=== PATIENT | male | born 1930 | race Caucasian/White ===

== ENCOUNTER → 2016-06-25 | Outpatient (CLI) | payer MEDICARE, OTHER ==
[2016-06-25 13:49] LABS: ABSOLUTE EOSINOPHILS # (AUTO) 0.1 10^3/uL (0.0-0.6); ABSOLUTE LYMPHOCYTES (AUTO) 1.5 10^3/uL (0.5-4.7); ABSOLUTE MONOCYTES (AUTO) 0.6 10^3/uL (0.1-1.4); ABSOLUTE NEUT (AUTO) 3.5 10^3/uL (1.7-8.2); BASOPHILS % (AUTO) 0.3 % (0-2); EOSINOPHILS % (AUTO) 1.3 % (0-6); HEMATOCRIT 44.5 % (37.9-51.0); HEMOGLOBIN 14.8 g/dL (13.5-17.0); HGB HCT DIFFERENCE -0.1; LYMPHOCYTES % (AUTO) 26.2 % (13-45); MEAN CORPUSCULAR HEMOGLOBIN 29.8 pg (27.0-33.4); MEAN CORPUSCULAR HGB CONC 33.2 g/dL (32.0-36.0); MEAN CORPUSCULAR VOLUME 90 fl (80-97); MONOCYTES % (AUTO) 9.9 % (3-13); RED BLOOD COUNT 4.96 10^6/uL (4.35-5.55); RED CELL DISTRIBUTION WIDTH 14.8 % (11.5-14.0); SEGMENTED NEUTROPHILS % (AUTO) 62.3 % (42-78); WHITE BLOOD COUNT 5.6 10^3/uL (4.0-10.5)
[2016-06-25 14:10] LABS: ALANINE AMINOTRANSFERASE 28 U/L (21-72); ALKALINE PHOSPHATASE 67 U/L (38-126); ANION GAP 12 (5-19); ASPARTATE AMINO TRANSFERASE 22 U/L (17-59); BLOOD UREA NITROGEN 12 mg/dL (7-20); CALCIUM 9.8 mg/dL (8.4-10.2); CARBON DIOXIDE 28 mmol/L (22-30); CHLORIDE 104 mmol/L (98-107); CREATININE RESULT 1.07 mg/dL (0.52-1.25); Direct HDL 45 mg/dL (>40); GLUCOSE 82 mg/dL (75-110); SODIUM 143.5 mmol/L (137-145); TOTAL PROTEIN 6.8 g/dL (6.3-8.2)
[2016-06-25 14:11] LABS: TRIGLYCERIDES 55 mg/dL (<150)
[2016-06-25 14:20] LABS: DIRECT LDL 69 mg/dL (<100)
== END ==
LOC: OD 12:38
DX: R19.00 Intra-abdominal and pelvic swelling, mass and lump, unspecified site (principal); K21.9 Gastro-esophageal reflux disease without esophagitis; I10 Essential (primary) hypertension; K40.90 Unilateral inguinal hernia, without obstruction or gangrene, not specified as recurrent; N41.0 Acute prostatitis; I82.90 Acute embolism and thrombosis of unspecified vein; F03.90 Unspecified dementia, unspecified severity, without behavioral disturbance, psychotic disturbance, mood disturbance, and anxiety; Z79.899 Other long term (current) drug therapy; R56.9 Unspecified convulsions
CPT/HCPCS: 36415; 80053; 80061; 83036; 84153; 84443; 85025; 87086

== ENCOUNTER → 2016-07-27 | Outpatient (CLI) | payer MEDICARE, OTHER | LOC: OD 10:03 | DX: R06.02 Shortness of breath (principal); J44.9 Chronic obstructive pulmonary disease, unspecified | CPT/HCPCS: 71020 ==

== ENCOUNTER → 2016-07-29 | Outpatient (CLI) | payer MEDICARE, OTHER | LOC: RAD 09:49 | DX: R19.00 Intra-abdominal and pelvic swelling, mass and lump, unspecified site (principal); K40.90 Unilateral inguinal hernia, without obstruction or gangrene, not specified as recurrent; N41.0 Acute prostatitis; R06.02 Shortness of breath | CPT/HCPCS: 74178; 82565 ==

== ENCOUNTER → 2016-08-10 | Outpatient (CLI) | payer MEDICARE, OTHER | LOC: RAD 16:06 | DX: K40.90 Unilateral inguinal hernia, without obstruction or gangrene, not specified as recurrent (principal) | CPT/HCPCS: 76870; 93976 ==

== ENCOUNTER 2016-08-24 10:05 | Inpatient (IN) | payer MEDICARE, OTHER ==
[2016-08-18 12:46] LABS: HEMATOCRIT 41.7 % (37.9-51.0); HEMOGLOBIN 14.2 g/dL (13.5-17.0); HGB HCT DIFFERENCE 0.9; MEAN CORPUSCULAR HEMOGLOBIN 29.9 pg (27.0-33.4); MEAN CORPUSCULAR HGB CONC 33.9 g/dL (32.0-36.0); MEAN CORPUSCULAR VOLUME 88 fl (80-97); RED BLOOD COUNT 4.73 10^6/uL (4.35-5.55); RED CELL DISTRIBUTION WIDTH 14.8 % (11.5-14.0); WHITE BLOOD COUNT 5.1 10^3/uL (4.0-10.5)
[2016-08-18 12:54] LABS: AMORPHOUS SEDIMENT,URINE TRACE /HPF; APPEARANCE,URINE CLOUDY; BILIRUBIN,URINE NEGATIVE (NEGATIVE); GLUCOSE, URINE NEGATIVE (NEGATIVE); KETONES,URINE NEGATIVE (NEGATIVE); LEUKOCYTE ESTERASE,URINE NEGATIVE (NEGATIVE); NITRITE,URINE NEGATIVE (NEGATIVE); PROTEIN,URINE NEGATIVE (NEGATIVE); URINE SPECIFIC GRAVITY 1.013; UROBILINOGEN,URINE NEGATIVE mg/dL (<2.0)
[2016-08-18 13:04] LABS: ALANINE AMINOTRANSFERASE 25 U/L (21-72); ALKALINE PHOSPHATASE 51 U/L (38-126); ANION GAP 12 (5-19); ASPARTATE AMINO TRANSFERASE 20 U/L (17-59); BILIRUBIN,DIRECT 0.2 mg/dL (0.0-0.4); BILIRUBIN,TOTAL 0.8 mg/dL (0.2-1.3); BLOOD UREA NITROGEN 24 mg/dL (7-20); CALCIUM 10.8 mg/dL (8.4-10.2); CARBON DIOXIDE 26 mmol/L (22-30); CHLORIDE 106 mmol/L (98-107); CREATININE RESULT 1.18 mg/dL (0.52-1.25); GLUCOSE 112 mg/dL (75-110); POTASSIUM 4.2 mmol/L (3.6-5.0); TOTAL PROTEIN 6.8 g/dL (6.3-8.2)
--- NOTE | 2016-08-18 20:27 | EKG REPORT ---
SEVERITY:- ABNORMAL ECG - SINUS RHYTHM FIRST DEGREE AV BLOCK NONSPECIFIC INTRAVENTRICULAR CONDUCTION DELAY : Confirmed by: Ector Garrett 18-Aug-2016 20:26:05
[2016-08-31] MEDS ORDERED: DEXTROSE 5%-1/2 NORMAL SALINE 1,000 ML IV PRN (05:00)
[2016-08-31] MEDS ORDERED: LACTATED RINGERS 1000 ML IV PRN (05:00)
[2016-08-31] MEDS ORDERED: CLINDAMYCIN 600 MG/D5W RTU 600 MG/50 ML RTUPB IV PRN (05:00)
[2016-08-31 09:31] LABS: PROTHROMBIN TIME 14.6 SEC (11.4-15.4)
[2016-08-31 09:32] LABS: PARTIAL THROMBOPLASTIN TIME 31.1 SEC (23.5-35.8)
[2016-08-31] MEDS ORDERED: LIDOCAINE 0.5% INJ-PF (5 MG/ML) 50 ML SDV ONE (10:31)
[2016-08-31] MEDS ORDERED: BACITRACIN INJ 50,000 UNIT VIAL ONE (10:31)
[2016-08-31] MEDS ORDERED: BUPIVACAINE HCL 0.25 % INJ/PF (2.5 MG/1 ML) 30 ML VIAL ONE (10:31)
[2016-08-31] MEDS ORDERED: HYDROMORPHONE HCL INJ/PF 2 MG/ML AMPULE ONE (11:42)
[2016-08-31] MEDS ORDERED: FENTANYL CITRATE INJ/PF 100 MCG/2 ML AMPUL ONE ×2 (11:42→11:43)
[2016-08-31] MEDS ORDERED: PROPOFOL INJ 200 MG/20 ML VIAL IV ONE (11:43)
[2016-08-31] MEDS ORDERED: MIDAZOLAM 2 MG/2 ML INJ ONE (11:43)
[2016-08-31] MEDS ORDERED: ACETAMINOPHEN 100 ML IV ONE (11:43)
[2016-08-31] MEDS ORDERED: DEXMEDETOMIDINE INJ 80 MCG/20 ML VIAL IV ONE (11:44)
[2016-08-31] MEDS ORDERED: DIPHENHYDRAMINE HCL 50 MG/ML VIAL IV PRN (12:42)
[2016-08-31] MEDS ORDERED: FENTANYL CITRATE INJ/PF 100 MCG/2 ML AMPUL IV PRN ×3 (12:42)
[2016-08-31] MEDS ORDERED: PROMETHAZINE HCL INJ 25 MG/1 ML VIAL IV PRN (12:42)
[2016-08-31] MEDS ORDERED: ONDANSETRON HCL INJ/PF 4 MG/2 ML SDV IV PRN (12:42)
[2016-08-31] MEDS ORDERED: OXYCODONE-ACETAMINOPHEN 5-325 MG TABLET PO PRN (14:52)
--- NOTE | 2016-08-31 16:22 | Operative Report ---
Operative Report DATE OF SURGERY: 08/31/16 PREOPERATIVE DIAGNOSIS: #1 symptomatic left inguinoscrotal hernia. #2 COPD. # 3 history of seizure disorder. #4 chronic kidney disease. 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 #6 hypertension. POSTOPERATIVE DIAGNOSIS: #1 symptomatic left inguinoscrotal hernia. Sliding type. #2 COPD. #3 history of seizure disorder. #4 chronic kidney disease. # 5 history of recurrent deep venous thrombosis. #6 hypertension. OPERATION: Reduction and repair of left inguinal scrotal hernia with mesh. SURGEON: ALBERTO ONEIL TOP CARRIER: none ANESTHESIA: Spinal TISSUE REMOVED OR ALTERED: Not applicable COMPLICATIONS: None ESTIMATED BLOOD LOSS: 20 mL. INTRAOPERATIVE FINDINGS: Of a large left inguinal scrotal hernia containing omentum and posterior sliding component with large intestine probably sigmoid. Nicely reduced within the peritoneal cavity and the reduction maintained with a Prolene hernia system mesh. A quite weak medial posterior inguinal canal indicating both direct and indirect components. No femoral component. The ilioinguinal nerve was identified and preserved. Very nice reduction and repair was accomplished. Particular care was taken to ensure hemostasis as this patient is on chronic anticoagulation. Hematoma will be looked for, given the large surface area of the dissection. PROCEDURE: After obtaining informed consent and going over the procedure with [the patient and his family], he was taken to the operating room, he was anesthetized appropriately. The abdomen was prepped and draped in the usual sterile fashion. After the universal timeout, in which it was verified that the patient received IV antibiotic, the procedure commenced. A transverse incision was made in the left lower abdomen abdominal, groin area, just above the pubic tubercle. 8 cm in length.Local, regional anesthesia was infiltrated, just before incision.. Incision was made with a [15 blade scalpel] . Dissection now proceeded through the subcutaneous tissue down to the external oblique aponeurosis. The external ring was identified and the external oblique opened in the line of its fibers. The inguinal canal was thus displayed. Dissection was facilitated by the use a headlight and using loupe magnification. The spermatic cord was dissected off the pubic tubercle and surrounded with a moist Vanda drain, the cremasteric fascia was now incised longitudinally revealing the contents of the spermatic cord. The sac was readily evident and this was grasped with a hemostat. It was now dissected in a retrograde fashion into the retroperitoneal space. It was opened and the content reduced within the peritoneal cavity. The sliding component probably sigmoid colon noted. The opening was in the sac was now closed using a continuous suture of 3-0 PDS. It was now reduced within the the preperitoneal space. The preperitoneal space was now developed circumferentially. It easily accommodated a sponge which was removed. Hemostasis was checked for and ensured there in. The space between the external and internal oblique aponeuroses was now developed to accommodate the external portion of the mesh. Having done so a Prolene hernia system mesh was now folded, in the machine assistant' s approved fashion and inserted into the preperitoneal space. The internal portion was deployed flat in the preperitoneal space the external portion was unfolded and tucked beneath the external oblique. Secured with a 0 PDS suture to the internal oblique superiorly, the fascia adjacent to the pubic tubercle medially, inferiorly it was split up to the connector, the the split mesh was now used to surround the spermatic cord. It was reapproximated with a suture of 0 PDS. 0 PDS was now used to approximate the inferior border of the mesh to the shelving edge of Poupart's ligament with a single suture. Laterally the mesh was tucked beneath the external oblique. The external oblique was now reconstituted using a continuous suture of 3-0 PDS. 3-0 PDS interrupted sutures were used to approximate the subcutaneous tissues after removing the Shirley drain. The skin was closed using a continuous subcuticular suture of 4- 0 Monocryl reinforced with Steri-Strips over benzoin. Copies dictated operative report to Dr. Alberto Bhatt MD.
[2016-08-31] MEDS: KETOROLAC TROMETHAMINE 10 MG TABLET PO SCH (18:00)
[2016-09-01] MEDS: KETOROLAC TROMETHAMINE 10 MG TABLET PO SCH ×3 (10:36→17:39)
--- NOTE | 2016-09-01 13:56 | Physician Advisory Note ---
Physician Advisor ProgressNote .: [facility], I have reviewed the medical record for this patient. Physician Advisor Statement: Possible documentation opportunities if attending agrees: 1. Medical necessity: please document explicitly why this pt, on this stay, is expected to need at least a 2nd MN of care & monitoring in Inpt hospital setting, since severity of illnes & intensity of service aren't looking severely high here - otherwise, Inpt status may be denied. [ high risk for p- op ileus? high risk for blding? need f/u CBC? ...] - see below - As always, if concerned about any unstable VS or abnormal labs, please comment on them - what bad things they might indicate, why they concern you - & note what doing about them. Please also document each day the potential clinical problems you are concerned could occur if pt not kept in hospital for tx at this time. (These points are sun - if present in each note, attending's status decision should be sufficiently supported.) Discussion: 86yo male w/ chronic co-morbidities including COPD, CKD stage ___[1? 2?], HTN, recurrent DVT w/chronic anticoagulation using Xarelto, sz d/o - presented 08/31 for elective open repair of sx-atic Lt inguinoscrotal hernia, sliding type, with mesh. (+) Attending ordered prn po pain meds, full liquid diet, no BP meds or anticoag. Status: Currently no H&P or progress notes present, insufficient info available to determine whether or not pt approp for Inpt status or not. Pt has had frequent bradycardia in the 40s on 08/31, w/continued HTN, then HR 92 at 12:34 on 09/01. - Is this concerning to attending? A reason to keep a 2nd night? Attending has documented in Op note that hematoma will be monitored for, given large surface area of dissection. How long will pt need to stay in hospital, & because ? Tx in inpatient hospital setting medically reasonable & necessary to protect pt' s health, safety, & medical condition? Thanks for your help with documentation accuracy/specificity improvement! Urmila Newton MD [facility] Physician Advisor, Fellow of Hospital Medicine
--- NOTE | 2016-09-01 15:02 | PDOC PROGRESS REPORT ---
Subjective Progress Note for:: 09/01/16 Subjective:: Out of bed and apparently feeling well. His daughter and social service assistant present. No complaints. Physical Exam Vital Signs: Temp Pulse Resp BP Pulse Ox 97.9 F 92 17 129/74 H 97 09/01/16 12:34 09/01/16 12:34 09/01/16 12:34 09/01/16 12:34 09/01/16 12:34 Intake & Output 08/31/16 09/01/16 09/02/16 06:59 06:59 06:59 Intake Total 2077 600 Output Total 1385 1100 Balance 692 -500 Weight 110.9 kg Additional comments: A well-developed well-nourished 86-year-old male. No acute distress. Left groin shows minimal findings secondary to surgery, mild swelling, no hematoma sitting in place. Urinary catheter is in place for urinary retention. Draining clear urine. Results Laboratory Results: 08/18/16 11:49 08/31/16 08:56 Assessment & Plan - Diagnosis (1) Left inguinal hernia Is this a current diagnosis for this admission?: YesPlan: Ambulation is encouraged. The patient's Walker is to be brought to him. This is to be done with supervision as he does have some tendency to fall. (2) Urinary retention due to benign prostatic hyperplasia Is this a current diagnosis for this admission?: YesPlan: The Hebert catheter will be kept in place overnight and removed first thing in the morning. The objective is to transition him to his normal elimination habits. Once this is accomplished she can be discharged hopefully by tomorrow afternoon. (3) History of DVT (deep vein thrombosis) Is this a current diagnosis for this admission?: YesPlan: His Xarelto to be resumed today.
[2016-09-01] MEDS ORDERED: RIVAROXABAN 10 MG TABLET PO ONE (19:00)
[2016-09-02] MEDS: KETOROLAC TROMETHAMINE 10 MG TABLET PO SCH ×2 (09:54→16:02)
[2016-09-02] MEDS ORDERED: METOPROLOL SUCCINATE 25 MG TAB.SR.24H PO ONE ×2 (11:00→12:30)
--- NOTE | 2016-09-02 12:28 | DISCHARGE SUMMARY E ---
Discharge Summary NAME: DANIEL BHATT : 1930 AGE: 86Y ADMITTED: 08/31/2016 DISCHARGED: 09/02/2016 FINAL DIAGNOSES: 1. Post reduction and repair of left inguinal scrotal hernia with mesh. 2. COPD. 3. History of seizure disorder. 4. Chronic kidney disease. 5. History of recurrent DVT. 6. Hypertension. SUMMARY: This is an 86-year-old male who came in for large left inguinal scrotal hernia. An open repair was done by Jhonny Bhatt MD on 08/31/2016 in the afternoon. Postoperatively, the patient is doing quite well. Today, he was able to finally void on his own. The incision site is clean and dry with minimal swelling and erythema. Denies any pains or discomfort at the operative site. The patient is to be discharged today to rehab facility to continue all of his medications. DICTATING PHYSICIAN: ИРИНА RUSS M.D. [id number] PHY#: [id number] ID: [id number] JOB#: [id number] ACCT: [id number] cc:Brenda CARLSON M.D. >
[2016-09-02] MEDS ORDERED: MULTIVITAMIN TABLET PO ONE (12:30)
[2016-09-02] MEDS ORDERED: LIDOCAINE 5% (700 MG) TRANSDERMAL ADH..PATCH TP ONE (12:30)
[2016-09-02] MEDS ORDERED: TAMSULOSIN HCL 0.4 MG CAP.SR.24H PO ONE (12:30)
[2016-09-02] MEDS ORDERED: LAMOTRIGINE 100 MG TABLET PO ONE (12:30)
[2016-09-02] MEDS ORDERED: GABAPENTIN 300 MG CAPSULE PO ONE (12:30)
[2016-09-02] MEDS ORDERED: LEVOTHYROXINE SODIUM 0.075 MG TABLET PO ONE (12:30)
[2016-09-02] MEDS ORDERED: CHOLECALCIFEROL (D3) 1,000 UNIT TABLET PO SCH (12:30)
[2016-09-02] MEDS ORDERED: LEVOTHYROXINE SODIUM 0.1 MG TABLET PO ONE (12:30)
[2016-09-02] MEDS ORDERED: SERTRALINE HCL 50 MG TABLET PO ONE (12:30)
[2016-09-02] MEDS ORDERED: MEMANTINE HCL 10 MG TABLET PO ONE (12:30)
[2016-09-02] MEDS ORDERED: RIVAROXABAN 10 MG TABLET PO SCH (17:00)
[2016-09-02 17:14] VITALS: BP 168/77
[2016-09-02] MEDS ORDERED: GABAPENTIN 300 MG CAPSULE PO SCH (22:00)
[2016-09-02] MEDS ORDERED: LAMOTRIGINE 100 MG TABLET PO SCH (22:00)
[2016-09-03] MEDS ORDERED: LEVOTHYROXINE SODIUM 0.1 MG TABLET PO SCH (08:00)
[2016-09-03] MEDS ORDERED: LEVOTHYROXINE SODIUM 0.075 MG TABLET PO SCH (08:00)
[2016-09-03] MEDS ORDERED: SERTRALINE HCL 50 MG TABLET PO SCH (10:00)
[2016-09-03] MEDS ORDERED: TAMSULOSIN HCL 0.4 MG CAP.SR.24H PO SCH (10:00)
[2016-09-03] MEDS ORDERED: FENOFIBRATE 150 MG PO SCH (10:00)
[2016-09-03] MEDS ORDERED: [UNRECOGNIZED DRUG - OTHER] PO SCH (10:00)
[2016-09-03] MEDS ORDERED: (PENDING PHARMACY ID) (Levothyroxine Sodium [Synthroid] 175 MCG) PO SCH (10:00)
[2016-09-03] MEDS ORDERED: MEMANTINE HCL 10 MG TABLET PO SCH (10:00)
[2016-09-03] MEDS ORDERED: CHOLECALCIFEROL (D3) 1,000 UNIT TABLET PO SCH (10:00)
[2016-09-03] MEDS ORDERED: LIDOCAINE 5% (700 MG) TRANSDERMAL ADH..PATCH TP SCH (10:00)
[2016-09-03] MEDS ORDERED: (PENDING PHARMACY ID) (Memantine Hcl [Namenda] 5 MG) PO SCH (10:00)
[2016-09-03] MEDS ORDERED: VIT A C PO SCH (10:00)
[2016-09-03] MEDS ORDERED: METOPROLOL SUCCINATE 25 MG TAB.SR.24H PO SCH ×2 (10:00)
[2016-09-03] MEDS ORDERED: MINERALS PO SCH (10:00)
[2016-09-03] MEDS ORDERED: FENOFIBRATE NANOCRYSTALLIZED 145 MG TABLET PO SCH (10:00)
[2016-09-03] MEDS ORDERED: (PENDING PHARMACY ID) (Folic Acid/Multivit-Min/Lutein [Centrum Silver Chewable Tablet] 1 E PO SCH (10:00)
[2016-09-03] MEDS ORDERED: LUTEIN PO SCH (10:00)
[2016-09-03] MEDS ORDERED: MULTIVITAMIN TABLET PO SCH (10:00)
== END 2016-09-02 16:05 | disposition home health service (06) | DRG 352 ==
LOC: EDSTATUS 13:30 → INOR 08-31 08:33 → 4N 08-31 16:33
PROVIDERS: ADMIT Surgery; ATTEND Surgery
PROC: 0YU60JZ Supplement Left Inguinal Region with Synthetic Substitute, Open Approach (ICD-10-PCS; principal; 2016-08-31 11:00)
DX: K40.30 Unilateral inguinal hernia, with obstruction, without gangrene, not specified as recurrent (principal); J44.9 Chronic obstructive pulmonary disease, unspecified; E03.9 Hypothyroidism, unspecified; I12.9 Hypertensive chronic kidney disease with stage 1 through stage 4 chronic kidney disease, or unspecified chronic kidney disease; N18.9 Chronic kidney disease, unspecified; N40.1 Benign prostatic hyperplasia with lower urinary tract symptoms; R33.8 Other retention of urine; G40.909 Epilepsy, unspecified, not intractable, without status epilepticus; M19.90 Unspecified osteoarthritis, unspecified site; Z79.01 Long term (current) use of anticoagulants; Z79.899 Other long term (current) drug therapy; Z86.718 Personal history of other venous thrombosis and embolism; Z87.891 Personal history of nicotine dependence; Z88.0 Allergy status to penicillin
CPT/HCPCS: 36415; 71010; 80048; 80076; 81001; 830; 84132; 85027; 85610; 85730; 93005; 93010; C1781; J0131; J1170; J2250; J2704; J3010; J3490

== ENCOUNTER → 2016-09-28 | Outpatient (CLI) | payer MEDICARE, OTHER | LOC: SP 09:04 | PROVIDERS: ATTEND Internal Medicine | DX: I82.401 Acute embolism and thrombosis of unspecified deep veins of right lower extremity (principal) | CPT/HCPCS: 93971 ==

== ENCOUNTER → 2017-08-24 | Outpatient (CLI) | payer MEDICARE, OTHER ==
[2017-08-24 10:17] LABS: ABSOLUTE EOSINOPHILS # (AUTO) 0.2 10^3/uL (0.0-0.6); ABSOLUTE LYMPHOCYTES (AUTO) 1.4 10^3/uL (0.5-4.7); ABSOLUTE MONOCYTES (AUTO) 0.6 10^3/uL (0.1-1.4); BASOPHILS % (AUTO) 0.6 % (0-2); EOSINOPHILS % (AUTO) 3.5 % (0-6); HEMATOCRIT 41.8 % (37.9-51.0); LYMPHOCYTES % (AUTO) 26.8 % (13-45); MEAN CORPUSCULAR HEMOGLOBIN 29.9 pg (27.0-33.4); MEAN CORPUSCULAR HGB CONC 33.4 g/dL (32.0-36.0); MEAN CORPUSCULAR VOLUME 90 fl (80-97); MONOCYTES % (AUTO) 11.1 % (3-13); PLATELET COUNT 117 10^3/uL (150-450); RED BLOOD COUNT 4.67 10^6/uL (4.35-5.55); RED CELL DISTRIBUTION WIDTH 15.2 % (11.5-14.0); TOTAL CELLS COUNTED % (AUTO) 100 %; WHITE BLOOD COUNT 5.2 10^3/uL (4.0-10.5)
[2017-08-24 10:50] LABS: ALANINE AMINOTRANSFERASE 21 U/L (21-72); ALBUMIN 3.7 g/dL (3.5-5.0); ALKALINE PHOSPHATASE 47 U/L (38-126); ANION GAP 7 (5-19); ASPARTATE AMINO TRANSFERASE 20 U/L (17-59); BILIRUBIN,DIRECT 0.2 mg/dL (0.0-0.4); BILIRUBIN,TOTAL 0.6 mg/dL (0.2-1.3); BLOOD UREA NITROGEN 20 mg/dL (7-20); CALCIUM 10.3 mg/dL (8.4-10.2); CARBON DIOXIDE 31 mmol/L (22-30); CHLORIDE 107 mmol/L (98-107); CHOLESTEROL 107.16 mg/dL (0-200); GLUCOSE 88 mg/dL (75-110); POTASSIUM 4.5 mmol/L (3.6-5.0); SODIUM 145.3 mmol/L (137-145); TOTAL PROTEIN 6.3 g/dL (6.3-8.2); TRIGLYCERIDES 48 mg/dL (<150)
[2017-08-24 11:01] LABS: DIRECT LDL 57 mg/dL (<100)
== END ==
LOC: OD 08:54
PROVIDERS: ATTEND Family Medicine Geriatric Medicine
DX: I10 Essential (primary) hypertension (principal); E03.9 Hypothyroidism, unspecified; E53.9 Vitamin B deficiency, unspecified; E55.9 Vitamin D deficiency, unspecified; Z79.899 Other long term (current) drug therapy; N40.1 Benign prostatic hyperplasia with lower urinary tract symptoms
CPT/HCPCS: 36415; 80053; 80061; 82306; 82607; 84153; 84443; 85025

== ENCOUNTER → 2017-09-02 | Outpatient (CLI) | payer MEDICARE, OTHER ==
[2017-09-02 12:18] LABS: ABSOLUTE EOSINOPHILS # (AUTO) 0.1 10^3/uL (0.0-0.6); ABSOLUTE LYMPHOCYTES (AUTO) 1.5 10^3/uL (0.5-4.7); ABSOLUTE MONOCYTES (AUTO) 0.7 10^3/uL (0.1-1.4); ABSOLUTE NEUT (AUTO) 3.9 10^3/uL (1.7-8.2); BASOPHILS % (AUTO) 0.7 % (0-2); EOSINOPHILS % (AUTO) 1.8 % (0-6); HEMOGLOBIN 14.4 g/dL (13.5-17.0); LYMPHOCYTES % (AUTO) 24.2 % (13-45); MEAN CORPUSCULAR HEMOGLOBIN 30.1 pg (27.0-33.4); MEAN CORPUSCULAR HGB CONC 33.5 g/dL (32.0-36.0); MEAN CORPUSCULAR VOLUME 90 fl (80-97); MONOCYTES % (AUTO) 11.2 % (3-13); PLATELET COUNT 139 10^3/uL (150-450); RED BLOOD COUNT 4.78 10^6/uL (4.35-5.55); SEGMENTED NEUTROPHILS % (AUTO) 62.1 % (42-78); TOTAL CELLS COUNTED % (AUTO) 100 %; WHITE BLOOD COUNT 6.2 10^3/uL (4.0-10.5)
[2017-09-02 12:36] LABS: ANION GAP 11 (5-19); BLOOD UREA NITROGEN 24 mg/dL (7-20); CARBON DIOXIDE 28 mmol/L (22-30); CHLORIDE 106 mmol/L (98-107); GLUCOSE 87 mg/dL (75-110); POTASSIUM 4.6 mmol/L (3.6-5.0); SODIUM 144.6 mmol/L (137-145)
== END ==
LOC: OD 11:42
PROVIDERS: ATTEND Family Medicine Geriatric Medicine
DX: I82.509 Chronic embolism and thrombosis of unspecified deep veins of unspecified lower extremity (principal); E83.52 Hypercalcemia; E03.9 Hypothyroidism, unspecified
CPT/HCPCS: 36415; 80048; 83970; 85025

== ENCOUNTER → 2017-09-08 | Outpatient (CLI) | payer MEDICARE, OTHER ==
[2017-09-09 14:41] LABS: A/G RATIO 1.3 (0.7-1.7); ALBUMIN 2 3.7 g/dL (2.9-4.4); ALPHA-2-GLOBULIN 2 0.5 g/dL (0.4-1.0); BETA GLOBULINS 1.5 g/dL (0.7-1.3); GAMMA GLOBULIN 0.7 g/dL (0.4-1.8); GLOBULIN TOTAL 2.9 g/dL (2.2-3.9); MONOCLONAL SPIKE 0.6 g/dL (Not Observed); PROTEIN TOTAL SERUM 6.6 g/dL (6.0-8.5)
== END ==
LOC: OD 10:31
PROVIDERS: ATTEND Family Medicine Geriatric Medicine
DX: E83.52 Hypercalcemia (principal); N18.3 Chronic kidney disease, stage 3 (moderate)
CPT/HCPCS: 36415; 82310; 84165

== ENCOUNTER → 2017-09-08 | Outpatient (CLI) | payer MEDICARE, OTHER ==
--- NOTE | 2017-09-08 12:54 | RADIOLOGY REPORT (SQ) ---
EXAM DESCRIPTION: CT ABD/PELVIS NO ORAL OR IV COMPLETED DATE/TIME: 09/08/2017 12:37 pm REASON FOR STUDY: E83.52 HYPERCALCEMIA N18.3 CHRONIC KIDNEY DISEASE, STAGE 3 (MODERATE) E83.52 HYPE RCALCEMIA N40.1 BENIGN PROSTATIC HYPERPLASIA WITH LOWER URINARY TRACT N18.3 CHRONIC KIDNEY DISEASE , STAGE 3 (MODERATE) COMPARISON: 2013. TECHNIQUE: CT scan of the abdomen and pelvis performed without intravenous or oral contrast. Images reviewed with lung, soft tissue, and bone windows. Reconstructed coronal and sagittal MPR images revi ewed. All images stored on PACS. All CT scanners at this facility use dose modulation, iterative reconstruction, and/or weight based d osing when appropriate to reduce radiation dose to as low as reasonably achievable (ALARA). [facility]: Dose Right [facility]: CareDose [facility]: Dose Right [facility]: Teradose 4D [facility]: Smart [employer] RADIATION DOSE: CT Rad equipment meets quality standard of care and radiation dose reduction techniq ues were employed. CTDIvol: 23.9 mGy. DLP: 1289 mGy-cm.mGy. LIMITATIONS: Mildly-moderately limited evaluation due to motion artifact. FINDINGS: LOWER CHEST: Mild basilar pulmonary scar and motion artifact. NON-CONTRASTED LIVER, SPLEEN, ADRENALS: Evaluation limited by lack of IV contrast. No identified sign ificant masses. PANCREAS: No masses. No peripancreatic inflammatory changes. GALLBLADDER: Contracted. No regional stones. RIGHT KIDNEY AND URETER: 4 cm simple appearing cyst. No stones or obstruction. LEFT KIDNEY AND URETER: No solid masses. No significant calcification. No hydronephrosis or hydrouret er. AORTA AND RETROPERITONEUM: Dense atherosclerotic calcification without evidence of aneurysm. No retr operitoneal mass or adenopathy. BOWEL AND PERITONEAL CAVITY: No gross bowel obstruction, mass or inflammatory process. APPENDIX: Surgically absent. PELVIS, BLADDER, AND ABDOMINAL WALL:Numerous calcified phleboliths. No gross bladder mass or stones. BONES: Osteopenia with numerous generally chronic appearing compression fractures in the lower thorac ic and lumbar spine. OTHER: No other significant finding. IMPRESSION: 1. No acute or suspicious abdominopelvic abnormality on non contrasted CT evaluation. TECHNICAL DOCUMENTATION: JOB ID: [id number] Quality ID # [id number]: Final reports with documentation of one or more dose reduction techniques (e.g., Au tomated exposure control, adjustment of the mA and/or kV according to patient size, use of iterative reconstruction technique) 2010 [employer]- All Rights Reserved Reading location - IP/workstation name: [email or web address]
--- NOTE | 2017-09-08 14:47 | RADIOLOGY REPORT (SQ) ---
EXAM DESCRIPTION: BONE SURVEY COMPLETE COMPLETED DATE/TIME: 09/08/2017 2:35 pm REASON FOR STUDY: HYPERCALCEMIA E83.52 HYPERCALCEMIA N40.1 BENIGN PROSTATIC HYPERPLASIA WITH LOWER URINARY TRACT N18.3 CHRONIC KIDNEY DISEASE, STAGE 3 (MODERATE) COMPARISON: Abdominal CT from earlier today. CT head 2014. TECHNIQUE: Images of the axial and proximal appendicular skeleton are obtained, along with lateral s kull and frontal chest films. LIMITATIONS: None. FINDINGS: AP CHEST: No bony findings. Lungs are clear. LATERAL SKULL: Lucencies in the skull. Likely chronic venous lakes based on comparison with CT head from 2014. AP BOTH HUMERI: No worrisome bone lesions. TWO-VIEW LUMBAR SPINE: Osteopenia and chronic appearing compression fractures. TWO-VIEW THORACIC SPINE: Limiting osteopenia. Spondylosis and lower thoracic chronic appearing compr ession fractures. AP PELVIS: No worrisome bone lesions. AP BOTH FEMURS: No worrisome bone lesions. OTHER: No other significant finding. IMPRESSION: Osteopenic. Probable chronic compression fractures in the spine. Lucencies in the skul l as above, likely chronic as well. TECHNICAL DOCUMENTATION: JOB ID: [id number] [employer]- All Rights Reserved Reading location - IP/workstation name: [email or web address]
--- NOTE | 2017-09-08 15:20 | RADIOLOGY REPORT (SQ) ---
EXAM DESCRIPTION: CHEST 2 VIEWS COMPLETED DATE/TIME: 09/08/2017 2:35 pm REASON FOR STUDY: HYPERCALCEMIA COMPARISON: December 2014 EXAM PARAMETERS: NUMBER OF VIEWS: two views TECHNIQUE: Digital Frontal and Lateral radiographic views of the chest acquired. RADIATION DOSE: NA LIMITATIONS: none FINDINGS: LUNGS AND PLEURA: No opacities, masses or pneumothorax. No pleural effusion. Chronic appe aring changes are identified. MEDIASTINUM AND HILAR STRUCTURES: No masses or contour abnormalities. HEART AND VASCULAR STRUCTURES: Cardiac silhouette is enlarged. Tortuous thoracic aorta is again iden tified BONES: No acute findings. HARDWARE: Right shoulder prosthesis is identified. OTHER: No other significant finding. IMPRESSION: No significant interval change. No acute findings. Other findings as noted above. TECHNICAL DOCUMENTATION: JOB ID: [id number] [employer]- All Rights Reserved Reading location - IP/workstation name: [email or web address]
== END ==
LOC: RAD 12:41
PROVIDERS: ATTEND Family Medicine Geriatric Medicine
DX: E83.52 Hypercalcemia (principal); N18.3 Chronic kidney disease, stage 3 (moderate); N40.1 Benign prostatic hyperplasia with lower urinary tract symptoms
CPT/HCPCS: 71046; 74176; 77075

== ENCOUNTER → 2017-09-15 | Outpatient (CLI) | payer MEDICARE, OTHER ==
[2017-09-16 17:37] LABS: ALBUMIN URINE 29.7 % (.); ALPHA-1-GLOBULIN URINE 3.9 % (.); ALPHA-2-GLOBULIN UR 7.1 % (.); GAMMA GLOBULIN UR 10.6 % (.); M-SPIKE % URINE 19.4 % (Not Observed); PROTEIN TOTAL URINE 7.9 mg/dL (Not Estab.)
[2017-09-22 16:40] LABS: A/G RATIO. 1.3 (0.7-1.7); ALBUMIN 3 3.6 g/dL (2.9-4.4); ALPHA-1-GLOBULIN 0.2 g/dL (0.0-0.4); BETA GLOBULIN 1.6 g/dL (0.7-1.3); GAMMA GLOBULINS 0.7 g/dL (0.4-1.8); IMMUNOGLOBULIN A 108 mg/dL (61-437); IMMUNOGLOBULIN G 1255 mg/dL (700-1600); IMMUNOGLOBULIN M 39 mg/dL (15-143); MONOCLONAL-SPIKE 0.8 g/dL (Not Observed); PROTEIN TOTAL SERUM 6.6 g/dL (6.0-8.5)
== END ==
LOC: OD 11:59
PROVIDERS: ATTEND Family Medicine Geriatric Medicine
DX: R77.8 Other specified abnormalities of plasma proteins (principal); E86.1 Hypovolemia
CPT/HCPCS: 36415; 84156; 84166; 86320; 86335

== ENCOUNTER 2017-11-25 17:40 | Emergency (ER) | payer MEDICARE, OTHER ==
--- NOTE | 2017-11-25 18:02 | ER Document Report ---
ED Fall - General Chief Complaint: Fall Stated Complaint: FALL Time Seen by Provider: 11/25/17 18:00 Mode of Arrival: Ambulatory Information source: Patient Notes: Patient is an 87-year-old man who presents to the ER today via EMS from the skilled nursing across the street for injury to his left armpit earlier this morning. Patient states he was walking with his Rollator when he lost his balance, "felt myself falling" and turned to catch his armpit on the walker. Patient states he did not actually fall after that and the only thing that was injured was his armpit. He is on Xarelto and has had some bruising to the armpit. Primary care provider was called and the nurse at the skilled nursing was told to keep an eye on the Jose and if it got any larger to let him know. The nurse apparently called EMS stating "I cannot tell if it has gotten any larger or not." Patient denies any pain at all, has full range of motion of the shoulder and does not quite understand why he had to come in the emergency department at this time. TRAVEL OUTSIDE OF THE [place] IN LAST 30 DAYS: No - Related data Allergies/Adverse Reactions: Penicillins Allergy (Severe, Verified 11/25/17 17:49) swelling,pain,rash Past Medical History - General Information source: Patient - Social History Smoking Status: Never Smoker Frequency of alcohol use: None Drug Abuse: None Family History: Reviewed & Not Pertinent Patient has suicidal ideation: No Patient has homicidal ideation: No - Past Medical History Cardiac Medical History: Reports: Hx Coronary Artery Disease, Hx Hypercholesterolemia, Hx Hypertension, Hx Peripheral Vascular Disease - HX DVT Denies: Hx Atrial Fibrillation, Hx Congestive Heart Failure, Hx Heart Attack , Hx Pulmonary Embolism, Hx Heart Murmur Pulmonary Medical History: Reports: Hx COPD - SLEEP APNEA-NOT COMPLIANT, Hx Sleep Apnea - PT TO BRING MASK Denies: Hx Asthma, Hx Bronchitis, Hx Pneumonia, Hx Respiratory Failure, Hx Tuberculosis Neurological Medical History: Reports: Hx Seizures - x1 on meds. Denies: Hx Cerebrovascular Accident Endocrine Medical History: Reports: Hx Hypothyroidism. Denies: Hx Graves' Disease, Hx Hyperthyroidism Renal/ Medical History: Reports: Hx Benign Prostatic Hyperplasia. Denies: Hx End Stage Renal Disease, Hx Kidney Stones, Hx Peritoneal Dialysis Malignancy Medical History: Denies Hx Leukemia, Denies Hx Lung Cancer GI Medical History: Reports: Hx Gastroesophageal Reflux Disease. Denies: Hx Crohn's Disease, Hx Hiatal Hernia, Hx Irritable Bowel, Hx Liver Failure, Hx Pancreatitis, Hx Ulcer Musculoskeltal Medical History: Reports Hx Arthritis - KNEES, Denies Hx Fibromyalgia, Denies Hx Multiple Sclerosis, Denies Hx Muscular Dystrophy Psychiatric Medical History: Denies: Hx Dementia Traumatic Medical History: Denies: Hx Fractures Infectious Medical History: Denies: Hx HIV Past Surgical History: Reports: Hx Abdominal Surgery - WAR INJURY, Hx Appendectomy, Hx Orthopedic Surgery, Hx Thyroid Surgery - 195, Hx Tonsillectomy. Denies: Hx Bowel Surgery, Hx Cholecystectomy, Hx Colostomy, Hx Coronary Artery Bypass Graft, Hx Gastric Bypass Surgery, Hx Herniorrhaphy, Hx Pacemaker - Immunizations Hx Diphtheria, Pertussis, Tetanus Vaccination: Yes Hx Pneumococcal Vaccination: 03/04/16 Review of Systems - Review of Systems Constitutional: No symptoms reported EENT: No symptoms reported Cardiovascular: No symptoms reported Respiratory: No symptoms reported Gastrointestinal: No symptoms reported Genitourinary: No symptoms reported Male Genitourinary: No symptoms reported Musculoskeletal: No symptoms reported Skin: See HPI Hematologic/Lymphatic: No symptoms reported Neurological/Psychological: No symptoms reported Physical Exam - Vital signs Vitals: Temp Pulse Resp BP Pulse Ox 98.1 F 68 18 139/103 H 95 11/25/17 17:46 11/25/17 17:46 11/25/17 17:46 11/25/17 17:46 11/25/17 17:46 - Notes Notes: PHYSICAL EXAMINATION: GENERAL: Well-appearing and in no acute distress. HEAD: Atraumatic, normocephalic. EYES: Pupils equal round and reactive to light, extraocular movements intact, sclera anicteric, conjunctiva are normal. NECK: Normal range of motion, supple without lymphadenopathy LUNGS: CTAB and equal. No wheezes rales or rhonchi. HEART: Regular rate and rhythm without murmurs ABDOMEN: Soft, no tenderness. No guarding, no rebound BACK: no vertebral tenderness, normal ROM GI/: no CVA tenderness EXTREMITIES: No tenderness to the hips, shoulders, full range of motion of the left arm at the shoulder without any pain, normal range of motion, no pitting edema. No cyanosis. NEUROLOGICAL: Cranial nerves grossly intact. Normal sensory/motor exams. PSYCH: Normal mood, normal affect. SKIN: Warm, Dry, normal turgor, large 4 cm x 5 cm hematoma to the left axilla, mildly tender to palpation, no bleeding, no abrasion or laceration Course - Re-evaluation Re-evalutation: 11/25/17 18:14 Patient is very pleasant, does not have any pain, I do not see a reason to stop her Xarelto at this time nor do I see a reason to get any blood work or x-rays as he just has a bruise under his armpit. He can follow-up with his primary care provider at the skilled nursing about this. - Vital Signs Vital signs: Temp Pulse Resp BP Pulse Ox 98.1 F 68 18 139/103 H 95 11/25/17 18:01 11/25/17 18:01 11/25/17 18:01 11/25/17 18:01 11/25/17 18:01 Discharge - Discharge Clinical Impression: Hematoma Condition: Stable Disposition: HOME, SELF-CARE Instructions: Hematoma ([facility]) Additional Instructions: Return immediately for any new or worsening symptoms. Follow up with primary care provider, call tomorrow to make followup appointment. Referrals: DEBO CASTREJON MD [Primary Care Provider] - Follow up as needed
[2017-11-25 18:24] VITALS: BP 139/59
== END 2017-11-25 18:23 | disposition home or self-care (01) ==
LOC: ER 17:40
DX: S40.022A Contusion of left upper arm, initial encounter (principal); W22.8XXA Striking against or struck by other objects, initial encounter; Z79.01 Long term (current) use of anticoagulants; I25.10 Atherosclerotic heart disease of native coronary artery without angina pectoris; I10 Essential (primary) hypertension; J44.9 Chronic obstructive pulmonary disease, unspecified
CPT/HCPCS: 99284

== ENCOUNTER → 2017-12-02 | Outpatient (CLI) | payer MEDICARE, OTHER ==
[2017-12-02 12:34] LABS: HEMATOCRIT 40.2 % (37.9-51.0); HEMOGLOBIN 13.8 g/dL (13.5-17.0); MEAN CORPUSCULAR HEMOGLOBIN 30.4 pg (27.0-33.4); MEAN CORPUSCULAR HGB CONC 34.3 g/dL (32.0-36.0); MEAN CORPUSCULAR VOLUME 89 fl (80-97); PLATELET COUNT 138 10^3/uL (150-450); RED BLOOD COUNT 4.54 10^6/uL (4.35-5.55); RED CELL DISTRIBUTION WIDTH 14.7 % (11.5-14.0); WHITE BLOOD COUNT 4.5 10^3/uL (4.0-10.5)
[2017-12-02 13:01] LABS: ANION GAP 10 (5-19); BLOOD UREA NITROGEN 22 mg/dL (7-20); CALCIUM 9.8 mg/dL (8.4-10.2); CARBON DIOXIDE 29 mmol/L (22-30); CHLORIDE 105 mmol/L (98-107); GLUCOSE 85 mg/dL (75-110); POTASSIUM 4.8 mmol/L (3.6-5.0); SODIUM 144.4 mmol/L (137-145)
== END ==
LOC: OD 11:14
PROVIDERS: ATTEND Family Medicine Geriatric Medicine
DX: I82.509 Chronic embolism and thrombosis of unspecified deep veins of unspecified lower extremity (principal); E03.9 Hypothyroidism, unspecified; I10 Essential (primary) hypertension
CPT/HCPCS: 36415; 80048; 84443; 85027

== ENCOUNTER → 2017-12-24 | Outpatient (CLI) | payer MEDICARE, OTHER ==
[2017-12-24 11:08] LABS: ANION GAP 11 (5-19); BLOOD UREA NITROGEN 30 mg/dL (7-20); CALCIUM 10.2 mg/dL (8.4-10.2); CARBON DIOXIDE 32 mmol/L (22-30); CHLORIDE 103 mmol/L (98-107); GLUCOSE 81 mg/dL (75-110); POTASSIUM 4.5 mmol/L (3.6-5.0); SODIUM 146.2 mmol/L (137-145)
== END ==
LOC: OD 09:12
PROVIDERS: ATTEND Internal Medicine Nephrology
DX: N18.3 Chronic kidney disease, stage 3 (moderate) (principal)
CPT/HCPCS: 36415; 80048

== ENCOUNTER → 2018-04-02 | Outpatient (CLI) | payer MEDICARE, OTHER ==
[2018-04-02 09:29] LABS: ABSOLUTE EOSINOPHILS # (AUTO) 0.2 10^3/uL (0.0-0.6); ABSOLUTE LYMPHOCYTES (AUTO) 1.2 10^3/uL (0.5-4.7); ABSOLUTE MONOCYTES (AUTO) 0.6 10^3/uL (0.1-1.4); ABSOLUTE NEUT (AUTO) 2.4 10^3/uL (1.7-8.2); BASOPHILS % (AUTO) 0.4 % (0-2); EOSINOPHILS % (AUTO) 3.5 % (0-6); HEMATOCRIT 42.2 % (37.9-51.0); HEMOGLOBIN 14.3 g/dL (13.5-17.0); LYMPHOCYTES % (AUTO) 28.3 % (13-45); MEAN CORPUSCULAR HGB CONC 33.8 g/dL (32.0-36.0); MEAN CORPUSCULAR VOLUME 89 fl (80-97); MONOCYTES % (AUTO) 12.9 % (3-13); PLATELET COUNT 132 10^3/uL (150-450); RED BLOOD COUNT 4.75 10^6/uL (4.35-5.55); RED CELL DISTRIBUTION WIDTH 15.1 % (11.5-14.0); SEGMENTED NEUTROPHILS % (AUTO) 54.9 % (42-78); TOTAL CELLS COUNTED % (AUTO) 100 %; WHITE BLOOD COUNT 4.3 10^3/uL (4.0-10.5)
[2018-04-02 09:37] LABS: AMORPHOUS SEDIMENT,URINE TRACE /HPF; APPEARANCE,URINE CLOUDY; BILIRUBIN,URINE NEGATIVE (NEGATIVE); COLOR,URINE YELLOW; GLUCOSE, URINE NEGATIVE (NEGATIVE); KETONES,URINE NEGATIVE (NEGATIVE); LEUKOCYTE ESTERASE,URINE NEGATIVE (NEGATIVE); NITRITE,URINE NEGATIVE (NEGATIVE); PROTEIN,URINE NEGATIVE (NEGATIVE); URINE SPECIFIC GRAVITY 1.015; UROBILINOGEN,URINE NEGATIVE mg/dL (<2.0)
[2018-04-02 10:10] LABS: ANION GAP 11 (5-19); BLOOD UREA NITROGEN 24 mg/dL (7-20); CALCIUM 10.5 mg/dL (8.4-10.2); CARBON DIOXIDE 32 mmol/L (22-30); CHLORIDE 101 mmol/L (98-107); GLUCOSE 92 mg/dL (75-110); PHOSPHORUS 3.6 mg/dL (2.5-4.5); SODIUM 143.9 mmol/L (137-145)
[2018-04-04 04:36] LABS: CREATININE URINE 101.9 mg/dL (Not Estab.); MICROALBUMIN URINE <3.0 ug/mL (Not Estab.)
== END ==
LOC: OD 08:41
PROVIDERS: ATTEND Internal Medicine Nephrology
DX: I12.9 Hypertensive chronic kidney disease with stage 1 through stage 4 chronic kidney disease, or unspecified chronic kidney disease (principal); N18.3 Chronic kidney disease, stage 3 (moderate); D47.2 Monoclonal gammopathy
CPT/HCPCS: 36415; 80048; 81001; 82040; 82043; 82306; 82570; 83970; 84100; 85025

== ENCOUNTER 2018-04-16 14:14 | Emergency (ER) | payer MEDICARE, OTHER ==
[2018-04-16] MEDS ORDERED: LIDOCAINE 1%/EPINEPHRINE INJ 20 ML VIAL INJ ONE (14:39)
[2018-04-16 14:42] VITALS: BP 126/74
--- NOTE | 2018-04-16 15:21 | RADIOLOGY REPORT (SQ) ---
EXAM DESCRIPTION: CT HEAD WITHOUT COMPLETED DATE/TIME: 04/16/2018 3:01 pm REASON FOR STUDY: fall COMPARISON: 01/07/2015 and 08/30/2014 TECHNIQUE: Axial images acquired through the brain without intravenous contrast. Images reviewed wi th bone, brain and subdural windows. Additional sagittal and coronal reconstructions were generated. Images stored on PACS. All CT scanners at this facility use dose modulation, iterative reconstruction, and/or weight based d osing when appropriate to reduce radiation dose to as low as reasonably achievable (ALARA). [facility]: Dose Right [facility]: CareDose [facility]: Dose Right [facility]: Teradose 4D [facility]: Smart [employer] RADIATION DOSE: CT Rad equipment meets quality standard of care and radiation dose reduction techniq ues were employed. CTDIvol: 48.8 mGy. DLP: 1078 mGy-cm.mGy. LIMITATIONS: None. FINDINGS: VENTRICLES: Prominent. CEREBRUM: No masses. No hemorrhage. No midline shift. 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 Additional areas of low density in the white matter most likely due to chronic micr o-vascular ischemic change. No evidence for acute infarction. CEREBELLUM: No masses. No hemorrhage. No alteration of density. No evidence for acute infarction. EXTRAAXIAL SPACES: Age-related involutional change. No fluid collections. No masses. ORBITS AND GLOBE: Stable right lower lid hyperdensity may represent previous instrumentation. No int ra- or extraconal masses. Normal contour of globe without masses. CALVARIUM: No fracture. PARANASAL SINUSES: No fluid or mucosal thickening. SOFT TISSUES: No mass or hematoma. OTHER: No other significant finding. IMPRESSION: NO EVIDENCE OF CALVARIAL INJURY OR INTRACRANIAL HEMORRHAGE. STABLE BACKGROUND OF CHRONI C CHANGES OF ATROPHY AND MICROVASCULAR ISCHEMIA. EVIDENCE OF ACUTE STROKE: NO. TECHNICAL DOCUMENTATION: JOB ID: [id number] Quality ID # [id number]: Final reports with documentation of one or more dose reduction techniques (e.g., Au tomated exposure control, adjustment of the mA and/or kV according to patient size, use of iterative reconstruction technique) 2010 [employer]- All Rights Reserved Reading location - IP/workstation name: [email or web address]
--- NOTE | 2018-04-16 15:23 | RADIOLOGY REPORT (SQ) ---
EXAM DESCRIPTION: CT CERVICAL SPINE WITHOUT COMPLETED DATE/TIME: 04/16/2018 3:01 pm REASON FOR STUDY: fall COMPARISON: 03/30/2012 TECHNIQUE: Axial images acquired through the cervical spine without intravenous contrast. Images re viewed with lung, soft tissue and bone windows. Reconstructed coronal and sagittal MPR images review ed. Images stored on PACS. All CT scanners at this facility use dose modulation, iterative reconstruction, and/or weight based d osing when appropriate to reduce radiation dose to as low as reasonably achievable (ALARA). [facility]: Dose Right [facility]: CareDose [facility]: Dose Right [facility]: Teradose 4D [facility]: [employer] RADIATION DOSE: CT Rad equipment meets quality standard of care and radiation dose reduction techniq ues were employed. CTDIvol: 25.6 mGy. DLP: 732 mGy-cm. mGy. LIMITATIONS: None. FINDINGS: ALIGNMENT: Anatomic. MINERALIZATION: Osteopenia. VERTEBRAL BODIES: No fractures or dislocation. DISCS: Multilevel disc space narrowing with osteophytes. FACETS, LATERAL MASSES, POSTERIOR ELEMENTS: Facet arthropathy. No fractures. No dislocation. No ac habematolel findings. HARDWARE: None in the spine. VISUALIZED RIBS: No fractures. LUNG APICES AND SOFT TISSUES: No significant or acute findings. OTHER: No other significant finding. IMPRESSION: CHRONIC DEGENERATIVE CHANGES. NO ACUTE FINDINGS. TECHNICAL DOCUMENTATION: JOB ID: [id number] Quality ID # [id number]: Final reports with documentation of one or more dose reduction techniques (e.g., Au tomated exposure control, adjustment of the mA and/or kV according to patient size, use of iterative reconstruction technique) 2010 [employer]- All Rights Reserved Reading location - IP/workstation name: [email or web address]
--- NOTE | 2018-04-16 16:04 | ER Document Report ---
ED Head/Face/Scalp Injury - General Chief Complaint: Head Injury without LOC Stated Complaint: FALL Time Seen by Provider: 04/16/18 14:39 Notes: 88-year-old male who [facility] today [facility] the shelter on [place] secondary to pulmonary emboli. Patient supposedly states he just got his legs "crossed". Patient walks with a walker. Patient denies any and all chest pain, shortness of breath, lightheadedness or dizziness, abdominal pain, or any other causes of his fall. Patient is oriented to month and president. He denies pain to any other location. TRAVEL OUTSIDE OF THE [place] IN LAST 30 DAYS: No - HPI Patient complains to provider of: Laceration Injury to: Head Occurred: Just prior to arrival Where: Indoors Timing: Better Context: Fell Loss consciousness: No loss of consciousness Remembers: Injury, Coming to hospital - Related Data Allergies/Adverse Reactions: Penicillins Allergy (Severe, Verified 11/25/17 17:49) swelling,pain,rash Past Medical History - Social History Smoking Status: Former Smoker Chew tobacco use (# tins/day): No Drug Abuse: None Family History: Reviewed & Not Pertinent Patient has suicidal ideation: No Patient has homicidal ideation: No - Past Medical History Cardiac Medical History: Reports: Hx Coronary Artery Disease, Hx Hypercholesterolemia, Hx Hypertension, Hx Peripheral Vascular Disease - HX DVT Denies: Hx Atrial Fibrillation, Hx Congestive Heart Failure, Hx Heart Attack , Hx Pulmonary Embolism, Hx Heart Murmur Pulmonary Medical History: Reports: Hx COPD - SLEEP APNEA-NOT COMPLIANT, Hx Sleep Apnea - PT TO BRING MASK Denies: Hx Asthma, Hx Bronchitis, Hx Pneumonia, Hx Respiratory Failure, Hx Tuberculosis Neurological Medical History: Reports: Hx Seizures - x1 on meds. Denies: Hx Cerebrovascular Accident Endocrine Medical History: Reports: Hx Hypothyroidism. Denies: Hx Graves' Disease, Hx Hyperthyroidism Renal/ Medical History: Reports: Hx Benign Prostatic Hyperplasia. Denies: Hx End Stage Renal Disease, Hx Kidney Stones, Hx Peritoneal Dialysis Malignancy Medical History: Denies Hx Leukemia, Denies Hx Lung Cancer GI Medical History: Reports: Hx Gastroesophageal Reflux Disease. Denies: Hx Crohn's Disease, Hx Hiatal Hernia, Hx Irritable Bowel, Hx Liver Failure, Hx Pancreatitis, Hx Ulcer Musculoskeletal Medical History: Reports Hx Arthritis - KNEES, Denies Hx Fibromyalgia, Denies Hx Multiple Sclerosis, Denies Hx Muscular Dystrophy Psychiatric Medical History: Denies: Hx Dementia Traumatic Medical History: Denies: Hx Fractures Infectious Medical History: Denies: Hx HIV Past Surgical History: Reports: Hx Abdominal Surgery - WAR INJURY, Hx Appendectomy, Hx Orthopedic Surgery, Hx Thyroid Surgery - 1952, Hx Tonsillectomy. Denies: Hx Bowel Surgery, Hx Cholecystectomy, Hx Colostomy, Hx Coronary Artery Bypass Graft, Hx Gastric Bypass Surgery, Hx Herniorrhaphy, Hx Pacemaker - Immunizations Hx Diphtheria, Pertussis, Tetanus Vaccination: Yes Hx Pneumococcal Vaccination: 03/04/16 Review of Systems - Review of Systems Constitutional: denies: Fever EENT: denies: Eye discharge, Nose discharge Cardiovascular: denies: Chest pain, Palpitations Respiratory: denies: Short of breath Gastrointestinal: denies: Vomiting Genitourinary: denies: Dysuria Musculoskeletal: denies: Leg swelling Skin: Other - no hives. denies: Rash Neurological/Psychological: Other - no slurred speech -: Yes All other systems reviewed and negative Physical Exam - Vital signs Vitals: Temp Pulse Resp BP Pulse Ox 98.0 F 80 16 126/74 H 98 04/16/18 14:41 04/16/18 14:41 04/16/18 14:41 04/16/18 14:41 04/16/18 14:41 Notes: Reviewed vital signs and nursing note as charted by RN. CONSTITUTIONAL: Alert and oriented and responds appropriately to questions. Well -appearing; well-nourished HEAD: Small hemostatic laceration without a palpable skull depression to the occipital region EYES: PERRL; full extraocular range of motion ENT: Normal nose; no rhinorrhea; moist mucous membranes; pharynx without lesions noted NECK: Supple without meningismus; non-tender to the midline spine CARD: Regular rate and rhythm; no murmurs; symmetric distal pulses RESP: Normal chest excursion without splinting or tachypnea; breath sounds clear and equal bilaterally; no anterior posterior rib tenderness ABD/GI: Normal bowel sounds; non-distended; soft, non-tender BACK: The back appears normal and is non-tender to palpation along the midline spine EXT: Normal ROM in all joints; non-tender to palpation; no edema SKIN: No acute lesions noted NEURO: CN 2-12 intact; 5/5 bilateral upper and lower extremity strength with sensation intact to light touch PSYCH: The patient's mood and manner are appropriate. Grooming and personal hygiene are appropriate. Course - Re-evaluation Re-evalutation: 04/16/18 15:59 Given the above history and physical examination I ordered a CT scan of the head and cervical spine. We cleaned and irrigated the patient's wound extensively. Patient's tetanus is up-to-date. I do not believe any other imaging or laboratory work is necessary at this moment. - Vital Signs Vital signs: Temp Pulse Resp BP Pulse Ox 98.0 F 80 16 126/74 H 98 04/16/18 14:41 04/16/18 14:41 04/16/18 14:41 04/16/18 14:41 04/16/18 14:41 Procedures - Laceration/Wound Repair Head Wound length (cm): 2 Wound's Depth, Shape: Linear Laceration pre-procedure: Chloraprep applied Anesthetic type: 1% Lidocaine w/epi Wound explored: Clean Wound Repaired With: [place] Number of Sutures: 4 Discharge - Discharge Clinical Impression: Accidental fall Qualifiers: Encounter type: initial encounter Qualified Code(s): W19.XXXA - Unspecified fall, initial encounter Laceration of head Qualifiers: Encounter type: initial encounter Location of open wound of head: scalp Foreign body presence: without foreign body Qualified Code(s): S01.01XA - Laceration without foreign body of scalp, initial encounter Condition: Good Disposition: HOME, SELF-CARE Additional Instructions: Come back immediately with any weakness or numbness, vomiting, fevers, redness of the wound, or any other acute problems. Please make sure that bacitracin is applied to the wound twice daily and the stitches are removed in around 10 days. Referrals: VIBHA MAHER PA [Primary Care Provider] - Follow up as needed
== END 2018-04-16 16:44 | disposition home or self-care (01) ==
LOC: ER 14:14
DX: S01.01XA Laceration without foreign body of scalp, initial encounter (principal); W19.XXXA Unspecified fall, initial encounter; Y92.129 Unspecified place in nursing home as the place of occurrence of the external cause; I25.10 Atherosclerotic heart disease of native coronary artery without angina pectoris; I10 Essential (primary) hypertension; J44.9 Chronic obstructive pulmonary disease, unspecified; I26.99 Other pulmonary embolism without acute cor pulmonale; Z79.01 Long term (current) use of anticoagulants; Z88.0 Allergy status to penicillin; Z87.891 Personal history of nicotine dependence
CPT/HCPCS: 99284; 70450; 72125; 12001; J3490

== ENCOUNTER 2018-11-22 08:12 | Emergency (ER) | payer MEDICARE, OTHER ==
--- NOTE | 2018-11-22 09:39 | RADIOLOGY REPORT (SQ) ---
EXAM DESCRIPTION: CT HEAD WITHOUT COMPLETED DATE/TIME: 11/22/2018 9:22 am REASON FOR STUDY: head injury, blood thinners COMPARISON: CT brain 01/07/2015, 04/16/2018 TECHNIQUE: Axial images acquired through the brain without intravenous contrast. Images reviewed wi th bone, brain and subdural windows. Additional sagittal and coronal reconstructions were generated. Images stored on PACS. All CT scanners at this facility use dose modulation, iterative reconstruction, and/or weight based d osing when appropriate to reduce radiation dose to as low as reasonably achievable (ALARA). [facility]: Dose Right [facility]: CareDose [facility]: Dose Right [facility]: Teradose 4D [facility]: [id number].[id number] RADIATION DOSE: CT Rad equipment meets quality standard of care and radiation dose reduction techniq ues were employed. CTDIvol: 23.1 mGy. DLP: 522 mGy-cm. mGy. LIMITATIONS: Nonstandard radiographic positioning FINDINGS: VENTRICLES: Normal size and contour. CEREBRUM: No CT evidence of acute large territory ischemic change, acute intracranial hemorrhage, mas s effect, or midline shift. 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 CEREBELLUM: No masses. No hemorrhage. No alteration of density. No evidence for acute infarction. EXTRAAXIAL SPACES: No fluid collections. No masses. ORBITS AND GLOBE: No intra- or extraconal masses. Normal contour of globe without masses. CALVARIUM: No fracture. PARANASAL SINUSES: There is an air-fluid level in the left maxillary sinus, air-fluid level in the ri ght maxillary sinus, and fluid throughout the ethmoid air cells bilaterally. This could represent pr e-existing sinus disease. No gross displaced facial fractures. SOFT TISSUES: No scalp hematoma. Metallic foreign body in the right infraorbital region soft tissues on coronal image 14. OTHER: No other significant finding. IMPRESSION: No acute intracranial changes EVIDENCE OF ACUTE STROKE: NO. COMMENT: Quality ID # 436: Final reports with documentation of one or more dose reduction techniques (e.g., Automated exposure control, adjustment of the mA and/or kV according to patient size, use of iterative reconstruction technique) TECHNICAL DOCUMENTATION: JOB ID: [id number] [employer]- All Rights Reserved Reading location - IP/workstation name: [email or web address]
--- NOTE | 2018-11-22 09:44 | RADIOLOGY REPORT (SQ) ---
EXAM DESCRIPTION: CT CERVICAL SPINE WITHOUT COMPLETED DATE/TIME: 11/22/2018 9:22 am REASON FOR STUDY: head injury, blood thinners COMPARISON: CT cervical spine 04/16/2018 TECHNIQUE: Axial images acquired through the cervical spine without intravenous contrast. Images re viewed with lung, soft tissue and bone windows. Reconstructed coronal and sagittal MPR images review ed. Images stored on PACS. All CT scanners at this facility use dose modulation, iterative reconstruction, and/or weight based d osing when appropriate to reduce radiation dose to as low as reasonably achievable (ALARA). [facility]: Dose Right [facility]: CareDose [facility]: Dose Right [facility]: Teradose 4D [facility]: [employer] RADIATION DOSE: CT Rad equipment meets quality standard of care and radiation dose reduction techniq ues were employed. CTDIvol: 28.8 mGy. DLP: 597 mGy-cm. mGy. LIMITATIONS: Nonstandard radiographic positioning FINDINGS: ALIGNMENT: Anatomic. 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 This is sim ilar compared to prior CT from 04/16/2018 VERTEBRAL BODIES: No fractures or dislocation. DISCS: No significant disc disease. FACETS, LATERAL MASSES, POSTERIOR ELEMENTS: No fractures. No dislocation. No acute findings. HARDWARE: None in the spine. VISUALIZED RIBS: No fractures. LUNG APICES AND SOFT TISSUES: Calcified carotid bifurcations. OTHER: No other significant finding. IMPRESSION: No acute fracture or malalignment TECHNICAL DOCUMENTATION: JOB ID: [id number] Quality ID # [id number]: Final reports with documentation of one or more dose reduction techniques (e.g., Au tomated exposure control, adjustment of the mA and/or kV according to patient size, use of iterative reconstruction technique) 2010 [employer]- All Rights Reserved Reading location - IP/workstation name: [email or web address]
--- NOTE | 2018-11-22 10:27 | RADIOLOGY REPORT (SQ) ---
EXAM DESCRIPTION: CHEST SINGLE VIEW COMPLETED DATE/TIME: 11/22/2018 10:13 am REASON FOR STUDY: cough, recent PNA COMPARISON: 09/08/2017 EXAM PARAMETERS: NUMBER OF VIEWS: One view. TECHNIQUE: Single frontal radiographic view of the chest acquired. RADIATION DOSE: NA LIMITATIONS: None. FINDINGS: LUNGS AND PLEURA: Unchanged elevation of the left hemidiaphragm with associated bibasilar atelectasis or scarring. MEDIASTINUM AND HILAR STRUCTURES: No masses. Contour normal. HEART AND VASCULAR STRUCTURES: Heart normal in size. Normal vasculature. BONES: No acute findings. HARDWARE: None in the chest. OTHER: No other significant finding. IMPRESSION: Unchanged elevation of the left hemidiaphragm with associated bibasilar atelectasis or s carring. No acute abnormality of the lungs in AP projection. TECHNICAL DOCUMENTATION: JOB ID: [id number] [employer]- All Rights Reserved Reading location - IP/workstation name: [email or web address]
--- NOTE | 2018-11-22 10:43 | ER Document Report ---
ED Fall - General Chief Complaint: Fall Stated Complaint: FALL INJURY Time Seen by Provider: 11/22/18 09:01 Primary Care Provider: SHANEKA MENDOZA MD [Primary Care Provider] - Follow up as needed Mode of Arrival: Medic Information source: Patient Notes: This is an 88-year-old male presenting from the [facility] with complaint of fall injury. Patient reports that he tripped, falling forward and striking his head onto a table. He denies any loss of consciousness, nausea or vomiting. Patient denies any dizziness prior to the fall. Patient's son is at bedside and in agreements with history. TRAVEL OUTSIDE OF THE [place] IN LAST 30 DAYS: No - Related data Allergies/Adverse Reactions: Penicillins Allergy (Severe, Verified 11/25/17 17:49) swelling,pain,rash Past Medical History - General Information source: Patient - Social History Smoking Status: Never Smoker Frequency of alcohol use: None Drug Abuse: None Family History: Reviewed & Not Pertinent Patient has suicidal ideation: No Patient has homicidal ideation: No - Past Medical History Cardiac Medical History: Reports: Hx Coronary Artery Disease, Hx Hypercholesterolemia, Hx Hypertension, Hx Peripheral Vascular Disease - HX DVT Denies: Hx Atrial Fibrillation, Hx Congestive Heart Failure, Hx Heart Attack, Hx Pulmonary Embolism, Hx Heart Murmur Pulmonary Medical History: Reports: Hx COPD - SLEEP APNEA-NOT COMPLIANT, Hx Sleep Apnea - PT TO BRING MASK Denies: Hx Asthma, Hx Bronchitis, Hx Pneumonia, Hx Respiratory Failure, Hx Tuberculosis Neurological Medical History: Reports: Hx Seizures - x1 on meds. Denies: Hx Cerebrovascular Accident Endocrine Medical History: Reports: Hx Hypothyroidism. Denies: Hx Graves' Disease, Hx Hyperthyroidism Renal/ Medical History: Reports: Hx Benign Prostatic Hyperplasia. Denies: Hx End Stage Renal Disease, Hx Kidney Stones, Hx Peritoneal Dialysis Malignancy Medical History: Denies Hx Leukemia, Denies Hx Lung Cancer GI Medical History: Reports: Hx Gastroesophageal Reflux Disease. Denies: Hx Crohn's Disease, Hx Hiatal Hernia, Hx Irritable Bowel, Hx Liver Failure, Hx Pancreatitis, Hx Ulcer Musculoskeletal Medical History: Reports Hx Arthritis - KNEES, Denies Hx Fibromyalgia, Denies Hx Multiple Sclerosis, Denies Hx Muscular Dystrophy, Denies Hx Systemic Lupus Erythematosus Psychiatric Medical History: Denies: Hx Dementia Traumatic Medical History: Denies: Hx Fractures Infectious Medical History: Denies: Hx HIV Past Surgical History: Reports: Hx Abdominal Surgery - WAR INJURY, Hx Appendectomy, Hx Orthopedic Surgery, Hx Thyroid Surgery - 195, Hx Tonsillectomy. Denies: Hx Bowel Surgery, Hx Cholecystectomy, Hx Colostomy, Hx Coronary Artery Bypass Graft, Hx Gastric Bypass Surgery, Hx Herniorrhaphy, Hx Pacemaker - Immunizations Hx Diphtheria, Pertussis, Tetanus Vaccination: Yes Hx Pneumococcal Vaccination: 03/04/16 Review of Systems - Review of Systems Constitutional: No symptoms reported EENT: No symptoms reported Cardiovascular: No symptoms reported Respiratory: No symptoms reported Gastrointestinal: No symptoms reported Genitourinary: No symptoms reported Male Genitourinary: No symptoms reported Musculoskeletal: No symptoms reported Skin: Other - Laceration to scalp Hematologic/Lymphatic: No symptoms reported Neurological/Psychological: No symptoms reported Physical Exam - Vital signs Vitals: Resp BP Pulse Ox 16 134/71 H 95 11/22/18 08:23 11/22/18 08:23 11/22/18 08:23 - Notes Notes: PHYSICAL EXAMINATION: GENERAL: Well-appearing, well-nourished and in no acute distress. HEAD: Atraumatic, normocephalic. EYES: Pupils equal round and reactive to light, extraocular movements intact, sclera anicteric, conjunctiva are normal. ENT: Nares patent, oropharynx clear without exudates. Moist mucous membranes. NECK: Normal range of motion, supple without lymphadenopathy LUNGS: Breath sounds clear to auscultation bilaterally and equal. No wheezes rales or rhonchi. HEART: Regular rate and rhythm without murmurs ABDOMEN: Soft, nontender, nondistended abdomen. No guarding, no rebound. No m asses appreciated. Musculoskeletal: Normal range of motion, no pitting or edema. No cyanosis. NEUROLOGICAL: Cranial nerves grossly intact. Normal speech. Normal sensory, motor exams PSYCH: Normal mood, normal affect. SKIN: Small skin tear noted to left upper extremity, 1 cm laceration noted to left scalp, approximates well, no active bleeding noted. Course - Re-evaluation Re-evalutation: Chest x-ray was obtained as patient reports he is getting over pneumonia and was supposed to have a follow-up appointment with his primary care this morning for repeat chest x-ray. Chest x-ray with no acute findings. CT of the head and C- spine was obtained, both of these are negative for any acute findings. Patient does have a 1 cm linear laceration to his scalp on the left side. This was closed with a staple. There was no active bleeding noted at the time. Patient is on blood thinners. Patient will be discharged home in the care of his son who will take him back to the halfway. - Vital Signs Vital signs: Temp Pulse Resp BP Pulse Ox 98.1 F 19 126/71 H 95 11/22/18 10:48 11/22/18 10:48 11/22/18 10:48 11/22/18 10:48 Procedures - Laceration/Wound Repair Left scalp Wound length (cm): 1 Wound's Depth, Shape: Superficial Laceration pre-procedure: Sterile PPE donned Wound Repaired With: Perry - x1 Complications: No Discharge - Discharge Clinical Impression: Scalp laceration Qualifiers: Encounter type: initial encounter Qualified Code(s): S01.01XA - Laceration without foreign body of scalp, initial encounter Condition: Stable Disposition: HOME, SELF-CARE Additional Instructions: Please return to the emergency department or your primary care provider in 5 days for staple removal. The head and neck CTs were negative. The chest x-ray shows what appears to be a resolving pneumonia. Please drink plenty of fluids, try to use your assistive device to avoid further falls. Return to the emergency department for any new or worsening symptoms. Referrals: SHANEKA MENDOZA MD [Primary Care Provider] - Follow up as needed
[2018-11-22 10:50] VITALS: BP 126/71
== END 2018-11-22 11:02 | disposition home or self-care (01) ==
LOC: ER 08:12
DX: S01.01XA Laceration without foreign body of scalp, initial encounter (principal); S41.112A Laceration without foreign body of left upper arm, initial encounter; W19.XXXA Unspecified fall, initial encounter; W22.03XA Walked into furniture, initial encounter; Y92.129 Unspecified place in nursing home as the place of occurrence of the external cause; I10 Essential (primary) hypertension; I25.10 Atherosclerotic heart disease of native coronary artery without angina pectoris; J44.9 Chronic obstructive pulmonary disease, unspecified; Z88.0 Allergy status to penicillin
CPT/HCPCS: 70450; 71045; 72125; 99284

== ENCOUNTER 2019-01-20 09:39 | Emergency (ER) | payer MEDICARE, OTHER ==
--- NOTE | 2019-01-20 10:22 | RADIOLOGY REPORT (SQ) ---
EXAM DESCRIPTION: CT HEAD WITHOUT COMPLETED DATE/TIME: 01/20/2019 10:14 am REASON FOR STUDY: Fall and on blood thinners, hit head COMPARISON: 11/22/2018 TECHNIQUE: Axial images acquired through the brain without intravenous contrast. Images reviewed wi th bone, brain and subdural windows. Additional sagittal and coronal reconstructions were generated. Images stored on PACS. All CT scanners at this facility use dose modulation, iterative reconstruction, and/or weight based d osing when appropriate to reduce radiation dose to as low as reasonably achievable (ALARA). [facility]: Dose Right [facility]: CareDose [facility]: Dose Right [facility]: Teradose 4D [facility]: [employer] RADIATION DOSE: CT Rad equipment meets quality standard of care and radiation dose reduction techniq ues were employed. CTDIvol: 23.1 mGy. DLP: 464 mGy-cm.mGy. LIMITATIONS: None. FINDINGS: VENTRICLES: Prominent. CEREBRUM: No masses. No hemorrhage. No midline shift. Areas of low density in the white matter mos t likely due to chronic micro-vascular ischemic change. No evidence for acute infarction. CEREBELLUM: No masses. No hemorrhage. No alteration of density. No evidence for acute infarction. EXTRAAXIAL SPACES: Age-related involutional change. No fluid collections. No masses. ORBITS AND GLOBE: No intra- or extraconal masses. Normal contour of globe without masses. CALVARIUM: No fracture. PARANASAL SINUSES: Maxillary and left ethmoid sinusitis is again noted. SOFT TISSUES: No mass or hematoma. OTHER: No other significant finding. IMPRESSION: CHRONIC CHANGES OF ATROPHY AND MICROVASCULAR ISCHEMIA. NO ACUTE PROCESS. EVIDENCE OF ACUTE STROKE: NO. TECHNICAL DOCUMENTATION: JOB ID: [id number] Quality ID # [id number]: Final reports with documentation of one or more dose reduction techniques (e.g., Au tomated exposure control, adjustment of the mA and/or kV according to patient size, use of iterative reconstruction technique) 2010 [employer]- All Rights Reserved Reading location - IP/workstation name: [email or web address]
--- NOTE | 2019-01-20 10:23 | RADIOLOGY REPORT (SQ) ---
EXAM DESCRIPTION: CT CERVICAL SPINE WITHOUT COMPLETED DATE/TIME: 01/20/2019 10:14 am REASON FOR STUDY: Fall and on blood thinners, hit head COMPARISON: 11/22/2018 TECHNIQUE: Axial images acquired through the cervical spine without intravenous contrast. Images re viewed with lung, soft tissue and bone windows. Reconstructed coronal and sagittal MPR images review ed. Images stored on PACS. All CT scanners at this facility use dose modulation, iterative reconstruction, and/or weight based d osing when appropriate to reduce radiation dose to as low as reasonably achievable (ALARA). [facility]: Dose Right [facility]: CareDose [facility]: Dose Right [facility]: Teradose 4D [facility]: [employer] RADIATION DOSE: CT Rad equipment meets quality standard of care and radiation dose reduction techniq ues were employed. CTDIvol: 20.7 mGy. DLP: 497 mGy-cm. mGy. LIMITATIONS: None. FINDINGS: ALIGNMENT: Anatomic. MINERALIZATION: Normal. VERTEBRAL BODIES: No fractures or dislocation. DISCS: C1-C2: No significant spinal stenosis or exit foraminal stenosis. C2-C3: No significant spinal stenosis or exit foraminal stenosis. C3-C4: No significant spinal stenosis or exit foraminal stenosis. C4-C5: No significant spinal stenosis or exit foraminal stenosis. C5-C6: No significant spinal stenosis or exit foraminal stenosis. C6-C7: No significant spinal stenosis or exit foraminal stenosis. C7-T1: No significant spinal stenosis or exit foraminal stenosis. FACETS, LATERAL MASSES, POSTERIOR ELEMENTS: No fractures. No dislocation. No acute findings. HARDWARE: None in the spine. VISUALIZED RIBS: No fractures. LUNG APICES AND SOFT TISSUES: No significant or acute findings. OTHER: No other significant finding. IMPRESSION: NO ACUTE OR SIGNIFICANT FINDINGS IN THE CERVICAL SPINE. TECHNICAL DOCUMENTATION: JOB ID: [id number] Quality ID # [id number]: Final reports with documentation of one or more dose reduction techniques (e.g., Au tomated exposure control, adjustment of the mA and/or kV according to patient size, use of iterative reconstruction technique) 2010 [employer]- All Rights Reserved Reading location - IP/workstation name: [email or web address]
--- NOTE | 2019-01-20 10:53 | ER Document Report ---
ED Fall - General Chief Complaint: Fall Stated Complaint: FALL/HEAD PAIN Time Seen by Provider: 01/20/19 10:28 Primary Care Provider: SHANEKA MENDOZA MD [Primary Care Provider] - Follow up as needed Notes: 88-year-old male with history of blood clots on Xarelto, coronary artery disease, memory loss, hyperlipidemia presents to the emergency department after a mechanical fall at his residence at [facility]. Patient was brought in by ambulance. There was no loss of consciousness, patient states he remembers everything that happened and he tripped. He states he has a history of frequent falls. Denies any acute limb weakness or paresthesias, denies intractable headache, denies any vision changes, denies nausea or vomiting, denies any confusion or altered mental status. Denies history of atrial fibrillation or any syncopal episodes. No other complaints. TRAVEL OUTSIDE OF THE [place] IN LAST 30 DAYS: No - Related data Allergies/Adverse Reactions: Penicillins Allergy (Severe, Verified 11/25/17 17:49) swelling,pain,rash Past Medical History - Social History Smoking Status: Unknown if Ever Smoked Family History: Reviewed & Not Pertinent Patient has suicidal ideation: No Patient has homicidal ideation: No - Past Medical History Cardiac Medical History: Reports: Hx Coronary Artery Disease, Hx Hypercholesterolemia, Hx Hypertension, Hx Peripheral Vascular Disease - HX DVT Denies: Hx Atrial Fibrillation, Hx Congestive Heart Failure, Hx Heart Attack, Hx Pulmonary Embolism, Hx Heart Murmur Pulmonary Medical History: Reports: Hx COPD - SLEEP APNEA-NOT COMPLIANT, Hx Sleep Apnea - PT TO BRING MASK Denies: Hx Asthma, Hx Bronchitis, Hx Pneumonia, Hx Respiratory Failure, Hx Tuberculosis Neurological Medical History: Reports: Hx Seizures - x1 on meds. Denies: Hx Cerebrovascular Accident Endocrine Medical History: Reports: Hx Hypothyroidism. Denies: Hx Graves' Disea se, Hx Hyperthyroidism Renal/ Medical History: Reports: Hx Benign Prostatic Hyperplasia. Denies: Hx End Stage Renal Disease, Hx Kidney Stones, Hx Peritoneal Dialysis Malignancy Medical History: Denies Hx Leukemia, Denies Hx Lung Cancer GI Medical History: Reports: Hx Gastroesophageal Reflux Disease. Denies: Hx Crohn's Disease, Hx Hiatal Hernia, Hx Irritable Bowel, Hx Liver Failure, Hx Pancreatitis, Hx Ulcer Musculoskeletal Medical History: Reports Hx Arthritis - KNEES, Denies Hx Fibromyalgia, Denies Hx Multiple Sclerosis, Denies Hx Muscular Dystrophy, Denies Hx Systemic Lupus Erythematosus Psychiatric Medical History: Denies: Hx Dementia Traumatic Medical History: Denies: Hx Fractures Infectious Medical History: Denies: Hx HIV Past Surgical History: Reports: Hx Abdominal Surgery - WAR INJURY, Hx Appendectomy, Hx Orthopedic Surgery, Hx Thyroid Surgery - 1952, Hx Tonsillectomy. Denies: Hx Bowel Surgery, Hx Cholecystectomy, Hx Colostomy, Hx Coronary Artery Bypass Graft, Hx Gastric Bypass Surgery, Hx Herniorrhaphy, Hx Pacemaker - Immunizations Hx Diphtheria, Pertussis, Tetanus Vaccination: Yes Hx Pneumococcal Vaccination: 03/04/16 Review of Systems - Review of Systems Constitutional: See HPI EENT: No symptoms reported Cardiovascular: See HPI Respiratory: See HPI Gastrointestinal: See HPI Genitourinary: No symptoms reported Male Genitourinary: No symptoms reported Musculoskeletal: See HPI Skin: No symptoms reported Hematologic/Lymphatic: No symptoms reported Neurological/Psychological: See HPI Physical Exam - Vital signs Vitals: Temp Pulse BP Pulse Ox 98.1 F 74 125/60 90 L 01/20/19 09:49 01/20/19 09:49 01/20/19 09:49 01/20/19 09:49 - Notes Notes: PHYSICAL EXAMINATION: Reviewed vital signs and charting by RN GENERAL: Alert, interacts well. No acute distress. HEAD: Normocephalic, atraumatic. EYES: Pupils equal and round. Extraocular movements intact. ENT: Oral mucosa moist, tongue midline. NECK: Full range of motion. Trachea midline. LUNGS: Clear to auscultation bilaterally, no wheezes, rales, or rhonchi. No respiratory distress. HEART: Regular rate and rhythm. No murmur ABDOMEN: soft, non-tender. No distention. Bowel sounds present EXTREMITIES: Moves all 4 extremities spontaneously. No edema, No cyanosis. NEURO: A &O X 3, normal speech, patient does not have a walker and typically does not ambulate without it, PERRL, EOMI, SILT, follows commands in all 4 extremities, no gross abnormalities of cranial nerves, no focal neuro deficits, no pronator drift, [id number] testing normal, rapid alternating hand movements normal, material cutter strength 5/5 bilateral, 5/5 strength in both proximal and distal upper and lower extremities PSYCH: Normal affect, normal mood. SKIN: Warm, dry, normal turgor. No rashes or lesions noted. Course - Re-evaluation Re-evalutation: 01/20/19 10:52 Overall well-appearing. Patient very lucid with a normal neurologic exam. No acute focal weakness in any extremity. CT head did not show any evidence of an intracranial bleed or pathology. Because he is going to [facility] I am comfortable discharging him there as he will get close observation and I am instructing in his discharge paperwork that he should get at minimum 30 to 60-minute neuro checks for the next 6 to 12 hours. He is stable for discharge. - Vital Signs Vital signs: Temp Pulse Resp BP Pulse Ox 98.1 F 74 125/60 90 L 01/20/19 09:49 01/20/19 09:49 01/20/19 09:49 01/20/19 09:49 Discharge - Discharge Clinical Impression: Fall Qualifiers: Encounter type: initial encounter Qualified Code(s): W19.XXXA - Unspecified fall, initial encounter Condition: Good Disposition: HOME, SELF-CARE Additional Instructions: You were seen in the emergency department this morning for a mechanical fall. A CT scan of your head did not show any evidence of an intracranial bleed or anything concerning at this time. It is very important that the nursing staff where you live closely monitor you for the next 24 hours. They should be doing 30-minute to 1 hour checks every hour to make sure that you do not have any mental status changes. If you develop acute weakness in any of your extremities, passout, become acutely confused, develop severe intractable headache, or have any other concerning symptoms please immediately return to the emergency department. Referrals: SHANEKA MENDOZA MD [Primary Care Provider] - Follow up as needed
[2019-01-20 11:50] VITALS: BP 173/64
== END 2019-01-20 11:50 | disposition home or self-care (01) ==
LOC: ER 09:39
DX: R41.3 Other amnesia (principal); W01.0XXA Fall on same level from slipping, tripping and stumbling without subsequent striking against object, initial encounter; Z91.81 History of falling; Y92.10 Unspecified residential institution as the place of occurrence of the external cause; Z88.0 Allergy status to penicillin; I25.10 Atherosclerotic heart disease of native coronary artery without angina pectoris; E78.00 Pure hypercholesterolemia, unspecified; I10 Essential (primary) hypertension; Z86.718 Personal history of other venous thrombosis and embolism; Z79.01 Long term (current) use of anticoagulants
CPT/HCPCS: 70450; 72125; 99284

== ENCOUNTER 2019-03-04 23:33 | Emergency (ER) | payer MEDICARE, OTHER ==
--- NOTE | 2019-03-05 01:08 | RADIOLOGY REPORT (SQ) ---
EXAM DESCRIPTION: CT HEAD WITHOUT IV CONTRAST COMPLETED DATE/TME: 03/05/2019 00:00 CLINICAL HISTORY: 89 years, Male, fall COMPARISON: 01/20/2019 TECHNIQUE: Axial CT images of the brain were obtained without contrast. Sagittal and coronal reformats were performed. DL [id number] Images stored on PACS. All CT scanners at this facility use dose modulation, iterative reconstruction, and/or weight based dosing when appropriate to reduce radiation dose to as low as reasonably achievable (ALARA). [facility]: Dose Right [facility]: CareDose [facility]: Dose Right [facility]: Teradose 4D [facility]: [employer] LIMITATIONS: None. FINDINGS: There is no acute cortical infarct, hemorrhage, mass, edema, hydrocephalus, or extra-axial fluid collection. The tracy-white matter differentiation is preserved. There is diffuse cerebral atrophy with periventricular and deep white matter chronic microvascular changes particularly along the right frontal lobe. There is an air-fluid level within the left maxillary sinus. There is partial opacification of the ethmoid air cells. The mastoid air cells are clear. No depressed calvarial fracture. IMPRESSION: No significant change compared to the prior exam. No acute intracranial abnormality. Acute sinusitis. TECHNICAL DOCUMENTATION: Quality ID # [id number]: Final reports with documentation of one or more dose reduction techniques (e.g., Automated exposure control, adjustment of the mA and/or kV according to patient size, use of iterative reconstruction technique) copyright 2011 [employer]- All Rights Reserved
--- NOTE | 2019-03-05 01:58 | ER Document Report ---
ED Fall - General Chief Complaint: Fall Stated Complaint: FALL Time Seen by Provider: 03/05/19 00:28 Primary Care Provider: SHANEKA MENDOZA MD [Primary Care Provider] - Follow up as needed Information source: Patient, Emergency Med Personnel TRAVEL OUTSIDE OF THE [place] IN LAST 30 DAYS: No - HPI Occurred: Just prior to arrival Where: Other - Assisted living facility Context: Lost balance Associated symptoms: None Location of injury/pain: Head Quality of pain: Achy Severity: Mild Notes: 89-year-old male presents complaining of occipital pain after falling backwards at the assisted living facility is presenting from. There is no report of loss of consciousness. Patient's son is present in the room and relates some of the history. Patient's son says that the patient does have a history of falls from time to time. He also states that the patient is on an anticoagulant. Patient denies nausea, vomiting. - Related data Allergies/Adverse Reactions: Penicillins Allergy (Severe, Verified 11/25/17 17:49) swelling,pain,rash Past Medical History - General Information source: Patient, Relative, [facility] Records - Social History Smoking Status: Never Smoker Family History: Reviewed & Not Pertinent Patient has suicidal ideation: No Patient has homicidal ideation: No - Past Medical History Cardiac Medical History: Reports: Hx Coronary Artery Disease, Hx Hypercholesterolemia, Hx Hypertension, Hx Peripheral Vascular Disease - HX DVT Denies: Hx Atrial Fibrillation, Hx Congestive Heart Failure, Hx Heart Attack, Hx Pulmonary Embolism, Hx Heart Murmur Pulmonary Medical History: Reports: Hx COPD - SLEEP APNEA-NOT COMPLIANT, Hx Sleep Apnea - PT TO BRING MASK Denies: Hx Asthma, Hx Bronchitis, Hx Pneumonia, Hx Respiratory Failure, Hx Tuberculosis Neurological Medical History: Reports: Hx Seizures - x1 on meds. Denies: Hx Cerebrovascular Accident, Hx Parkinson's Disease Endocrine Medical History: Reports: Hx Hypothyroidism. Denies: Hx Graves' Disease, Hx Hyperthyroidism Renal/ Medical History: Reports: Hx Benign Prostatic Hyperplasia. Denies: Hx End Stage Renal Disease, Hx Kidney Stones, Hx Peritoneal Dialysis Malignancy Medical History: Denies Hx Leukemia, Denies Hx Lung Cancer GI Medical History: Reports: Hx Gastroesophageal Reflux Disease. Denies: Hx Crohn's Disease, Hx Hiatal Hernia, Hx Irritable Bowel, Hx Liver Failure, Hx Pancreatitis, Hx Ulcer Musculoskeletal Medical History: Reports Hx Arthritis - KNEES, Denies Hx Fibromyalgia, Denies Hx Multiple Sclerosis, Denies Hx Muscular Dystrophy, Denies Hx Systemic Lupus Erythematosus Psychiatric Medical History: Denies: Hx Dementia Traumatic Medical History: Denies: Hx Fractures Infectious Medical History: Denies: Hx HIV Past Surgical History: Reports: Hx Abdominal Surgery - WAR INJURY, Hx Appendectomy, Hx Orthopedic Surgery, Hx Thyroid Surgery - 1952, Hx Tonsillectomy. Denies: Hx Bowel Surgery, Hx Cholecystectomy, Hx Colostomy, Hx Coronary Artery Bypass Graft, Hx Gastric Bypass Surgery, Hx Herniorrhaphy, Hx Pacemaker - Immunizations Hx Diphtheria, Pertussis, Tetanus Vaccination: Yes Hx Pneumococcal Vaccination: 03/04/16 Review of Systems - Review of Systems Constitutional: No symptoms reported EENT: No symptoms reported Cardiovascular: No symptoms reported Respiratory: No symptoms reported Gastrointestinal: No symptoms reported Genitourinary: No symptoms reported Male Genitourinary: No symptoms reported Skin: No symptoms reported Hematologic/Lymphatic: No symptoms reported Neurological/Psychological: See HPI Physical Exam - Vital signs Vitals: Temp Pulse BP Pulse Ox 97.8 F 51 L 179/64 H 96 03/05/19 00:09 03/05/19 00:09 03/05/19 00:09 03/05/19 00:09 - General General appearance: Appears well, Alert In distress: None - HEENT Head: Normocephalic, Atraumatic, Tenderness - Patient's occiput is tender to palpation. There is no crepitus, step-off or other deformity noted on palpation. No: Abrasions, Pavon's sign, Ecchymosis, Open wounds, [place]'s eyes Eyes: Normal Conjunctiva: Normal Cornea: Normal Extraocular movements intact: Yes Pupils: PERRL Nasal: Normal Pharynx: Normal - Extremities General upper extremity: Nontender, Normal ROM, Normal strength General lower extremity: Normal inspection, Normal ROM, Normal strength - Neurological Neuro grossly intact: Yes Cognition: Normal [place] Coma Scale Eye Opening: Spontaneous [place] Coma Scale Verbal: Oriented [place] Coma Scale Motor: Obeys Commands [place] Coma Scale Total: 15 Speech: Normal - Psychological Associated symptoms: Normal affect, Normal mood Course - Re-evaluation Re-evalutation: 03/05/19 01:59 Patient is complaining of mild occipital pain. No focal neurologic findings other than the patient being hard of hearing are appreciated on exam. Patient states that he is ready to be discharged. Results of the head CT discussed with the patient and the patient's family. All questions were answered. Emergency signs and symptoms, reasons to return to the emergency department, discussed with patient and patient's family. Assessment: 89-year-old male with a history of frequent falls presents after falling at the assisted living facility he states at. Differential diagnosis: Head contusion, skull fracture, intracranial hemorrhage Final diagnosis: Head contusion Plan: Discharge with patient education about fall prevention and contusions. Patient and patient's family encouraged to return to the emergency department at any time by calling 911 if the patient's symptoms worsen. Patient instructed to follow-up with PCP in 1 day. - Vital Signs Vital signs: Temp Pulse Resp BP Pulse Ox 97.8 F 51 L 179/64 H 96 03/05/19 00:09 03/05/19 00:09 03/05/19 00:09 03/05/19 00:09 - Diagnostic Test Radiology reviewed: Reports reviewed Discharge - Discharge Clinical Impression: Head contusion Condition: Good Disposition: HOME-ASSISTED LIVING Instructions: Contusion ([facility]) Additional Instructions: Return to the Emergency Department without delay if any worse. Referrals: SHANEKA MENDOZA MD [Primary Care Provider] - Follow up tomorrow
[2019-03-05 03:00] VITALS: BP 139/73
== END 2019-03-05 03:00 | disposition home health service (06) ==
LOC: ER 23:33
DX: S00.93XA Contusion of unspecified part of head, initial encounter (principal); W18.30XA Fall on same level, unspecified, initial encounter; Y92.10 Unspecified residential institution as the place of occurrence of the external cause; I25.10 Atherosclerotic heart disease of native coronary artery without angina pectoris; E78.00 Pure hypercholesterolemia, unspecified; I10 Essential (primary) hypertension; E03.9 Hypothyroidism, unspecified; Z91.81 History of falling; Z88.0 Allergy status to penicillin; Z86.718 Personal history of other venous thrombosis and embolism
CPT/HCPCS: 70450; 99283

== ENCOUNTER 2019-11-29 10:23 | Emergency (ER) | payer MEDICARE ==
[2019-11-29 10:33] VITALS: BP 119/65
--- NOTE | 2019-11-29 11:01 | ER Document Report ---
ED General - General Stated Complaint: LEG SWELLING,PAIN Time Seen by Provider: 11/29/19 10:32 Primary Care Provider: SHANEKA MENDOZA MD [Primary Care Provider] - Follow up as needed Notes: 89-year-old male with dementia presents from facility with chronic right knee pain and chronic leg swelling right greater than left. Is been a recurrent problem. He was wearing circulation stockings but they were discontinued a couple of weeks ago. Says since then his leg is gotten slightly more swollen. The swollen part of his leg does not hurt. He has some chronic right knee pain without redness or fever. No drug use. Is ambulatory at baseline. No shortness of breath or chest pain. TRAVEL OUTSIDE OF THE [place] IN LAST 30 DAYS: No - Related Data Allergies/Adverse Reactions: Penicillins Allergy (Severe, Verified 11/25/17 17:49) swelling,pain,rash Past Medical History - General Information source: Patient - Social History Smoking Status: Former Smoker Family History: Reviewed & Not Pertinent - Past Medical History Cardiac Medical History: Reports: Hx Coronary Artery Disease, Hx Hypercholesterolemia, Hx Hypertension, Hx Peripheral Vascular Disease - HX DVT Denies: Hx Atrial Fibrillation, Hx Congestive Heart Failure, Hx Heart Attack, Hx Pulmonary Embolism, Hx Heart Murmur Pulmonary Medical History: Reports: Hx COPD - SLEEP APNEA-NOT COMPLIANT, Hx Sleep Apnea - PT TO BRING MASK Denies: Hx Asthma, Hx Bronchitis, Hx Pneumonia, Hx Respiratory Failure, Hx Tuberculosis Neurological Medical History: Reports: Hx Seizures - x1 on meds. Denies: Hx Cerebrovascular Accident, Hx Parkinson's Disease Endocrine Medical History: Reports: Hx Hypothyroidism. Denies: Hx Graves' Disease, Hx Hyperthyroidism Renal/ Medical History: Reports: Hx Benign Prostatic Hyperplasia. Denies: Hx End Stage Renal Disease, Hx Kidney Stones, Hx Peritoneal Dialysis Malignancy Medical History: Denies Hx Leukemia, Denies Hx Lung Cancer GI Medical History: Reports: Hx Gastroesophageal Reflux Disease. Denies: Hx Crohn's Disease, Hx Hiatal Hernia, Hx Irritable Bowel, Hx Liver Failure, Hx Pancreatitis, Hx Ulcer Musculoskeletal Medical History: Reports Hx Arthritis - KNEES, Denies Hx Fibromyalgia, Denies Hx Multiple Sclerosis, Denies Hx Muscular Dystrophy, Denies Hx Systemic Lupus Erythematosus Psychiatric Medical History: Denies: Hx Dementia Traumatic Medical History: Denies: Hx Fractures Infectious Medical History: Denies: Hx HIV Past Surgical History: Reports: Hx Abdominal Surgery - WAR INJURY, Hx Appendectomy, Hx Orthopedic Surgery, Hx Thyroid Surgery - 1952, Hx Tonsillectomy. Denies: Hx Bowel Surgery, Hx Cholecystectomy, Hx Colostomy, Hx Coronary Artery Bypass Graft, Hx Gastric Bypass Surgery, Hx Herniorrhaphy, Hx Pacemaker - Immunizations Hx Diphtheria, Pertussis, Tetanus Vaccination: Yes Hx Pneumococcal Vaccination: 03/04/16 Review of Systems - Review of Systems Notes: REVIEW OF SYSTEMS GEN: Denies fever, chills, weight loss ENT: Denies sore throat, nasal discharge, ear pain EYES: Denies blurry vision, eye pain, discharge CV: Denies chest pain, palpitations, edema RESP: Denies cough, shortness of breath, wheezing GI: Denies abdominal pain, nausea, vomiting, diarrhea MSK: Chronic right knee pain, chronic leg swelling, SKIN: Denies rash, skin lesions LYMPH: Denies swollen glands/lymph nodes NEURO: Denies headache, focal weakness or numbness, dizziness PSYCH: Denies depression, suicidal or homicidal ideation PHYSICAL EXAMINATION General: No acute distress, well-nourished Head: Atraumatic, normocephalic ENT: Mouth normal, oropharynx moist, no exudates or tonsillar enlargement Eyes: Conjunctiva normal, pupils equal, lids normal Neck: No JVD, supple, no guarding CVS: Normal rate, regular rhythm, no murmurs Resp: No resp distress, equal and normal breath sounds bilaterally GI: Nondistended, soft, no tenderness to palpation, no rebound or guarding Ext: Chronic appearing nonpitting edema right greater than left with pigmentation changes in the right leg consistent with venous stasis which patient says is old. Good range of motion of the right knee with mild crepitus but no swelling or effusion t Back: No CVA or midline TTP Skin: No rash, warm Lymphatic: No lymphadeopathy noted Neuro: Awake, alert. Face symmetric. GCS 15. Physical Exam - Vital signs Vitals: Temp Pulse Resp BP Pulse Ox 98.5 F 81 17 119/65 93 11/29/19 10:33 11/29/19 10:33 11/29/19 10:33 11/29/19 10:33 11/29/19 10:33 Course - Re-evaluation Re-evalutation: 11/29/19 11:24 Chronic knee pain likely DJD no evidence of acute infection or swelling Chronic leg swelling which is actually better today than in past notes, is alwa ys asymmetric and is gotten worse without stockings. Doubt DVT or heart failure at least not to the degree he needs an ED work-up because he has no pulmonary symptoms. Discharge circulation stockings recommended follow-up with primary care. I have discussed with the patient there likely diagnosis, aftercare plan, follow-up plans and my usual and customary return precautions. They verbalized understanding of this. 11/29/19 11:25 - Vital Signs Vital signs: Temp Pulse Resp BP Pulse Ox 98.5 F 81 17 119/65 93 11/29/19 10:33 11/29/19 10:33 11/29/19 10:33 11/29/19 10:33 11/29/19 10:33 Discharge - Discharge Clinical Impression: Venous stasis Condition: Good Disposition: HOME, SELF-CARE Instructions: Edema, Peripheral ([facility]) Referrals: SHANEKA MENDOZA MD [Primary Care Provider] - Follow up as needed
== END 2019-11-29 12:06 | disposition home or self-care (01) ==
LOC: ER 10:23
DX: I87.8 Other specified disorders of veins (principal); M79.89 Other specified soft tissue disorders; M25.561 Pain in right knee; G89.29 Other chronic pain; Z88.0 Allergy status to penicillin; Z87.891 Personal history of nicotine dependence; I25.10 Atherosclerotic heart disease of native coronary artery without angina pectoris; J44.9 Chronic obstructive pulmonary disease, unspecified
CPT/HCPCS: 99283

== ENCOUNTER 2020-01-03 18:49 | Emergency (ER) | payer MEDICARE, OTHER ==
--- NOTE | 2020-01-03 19:21 | ER Document Report ---
ED Fall - General Chief Complaint: Fall Stated Complaint: WELLNESS CHECK Time Seen by Provider: 01/03/20 19:03 Primary Care Provider: SHANEKA MENDOZA MD [Primary Care Provider] - Follow up tomorrow (Call for follow-up appointment in 1 to 2 days.) Mode of Arrival: Medic Information source: Parent, Relative Notes: 89-year-old male past medical history significant for dementia, coronary artery disease, hyperlipidemia, hypertension, COPD, chronic DVTs presents to the emergency room from [facility] via EMS with son at bedside. Son states he received a call earlier today from the facility saying that his dad had fallen and hit his head there was no known loss of consciousness. Was not complaining of anything initially and then started complaining of his head hurting so he was sent to the emergency room. Patient states that he was trying to take off his pants when he pushed his walker out of the way fell forward hitting his head. States he did not pass out. Is on Xarelto for his chronic DVTs no other blood thinners. TRAVEL OUTSIDE OF THE [place] IN LAST 30 DAYS: No - Related data Allergies/Adverse Reactions: Penicillins Allergy (Severe, Verified 11/25/17 17:49) swelling,pain,rash Past Medical History - General Information source: Patient, Relative - Social History Smoking Status: Never Smoker Frequency of alcohol use: None Drug Abuse: None Family History: Reviewed & Not Pertinent - Past Medical History Cardiac Medical History: Reports: Hx Coronary Artery Disease, Hx Hypercholesterolemia, Hx Hypertension, Hx Peripheral Vascular Disease - HX DVT Denies: Hx Atrial Fibrillation, Hx Congestive Heart Failure, Hx Heart Attack, Hx Pulmonary Embolism, Hx Heart Murmur Pulmonary Medical History: Reports: Hx COPD - SLEEP APNEA-NOT COMPLIANT, Hx Sleep Apnea - PT TO BRING MASK Denies: Hx Asthma, Hx Bronchitis, Hx Pneumonia, Hx Respiratory Failure, Hx Tuberculosis Neurological Medical History: Reports: Hx Seizures - x1 on meds. Denies: Hx Cerebrovascular Accident, Hx Parkinson's Disease Endocrine Medical History: Reports: Hx Hypothyroidism. Denies: Hx Graves' Disease, Hx Hyperthyroidism Renal/ Medical History: Reports: Hx Benign Prostatic Hyperplasia. Denies: Hx End Stage Renal Disease, Hx Kidney Stones, Hx Peritoneal Dialysis Malignancy Medical History: Denies Hx Leukemia, Denies Hx Lung Cancer GI Medical History: Reports: Hx Gastroesophageal Reflux Disease. Denies: Hx Crohn's Disease, Hx Hiatal Hernia, Hx Irritable Bowel, Hx Liver Failure, Hx Pancreatitis, Hx Ulcer Musculoskeletal Medical History: Reports Hx Arthritis - KNEES, Denies Hx Fibromyalgia, Denies Hx Multiple Sclerosis, Denies Hx Muscular Dystrophy, Denies Hx Systemic Lupus Erythematosus Psychiatric Medical History: Denies: Hx Dementia Traumatic Medical History: Denies: Hx Fractures Infectious Medical History: Denies: Hx HIV Past Surgical History: Reports: Hx Abdominal Surgery - WAR INJURY, Hx Appendectomy, Hx Orthopedic Surgery, Hx Thyroid Surgery - 1952, Hx Tonsillectomy. Denies: Hx Bowel Surgery, Hx Cholecystectomy, Hx Colostomy, Hx Coronary Artery Bypass Graft, Hx Gastric Bypass Surgery, Hx Herniorrhaphy, Hx Pacemaker - Immunizations Hx Diphtheria, Pertussis, Tetanus Vaccination: Yes Hx Pneumococcal Vaccination: 03/04/16 Review of Systems - Review of Systems Constitutional: No symptoms reported EENT: No symptoms reported Cardiovascular: No symptoms reported Respiratory: No symptoms reported Gastrointestinal: No symptoms reported Musculoskeletal: No symptoms reported Skin: No symptoms reported Neurological/Psychological: No symptoms reported -: Yes All other systems reviewed and negative Physical Exam - Vital signs Vitals: Temp Pulse Resp BP Pulse Ox 98.2 F 81 16 112/68 94 01/03/20 18:55 01/03/20 18:55 01/03/20 18:55 01/03/20 18:55 01/03/20 18:55 - General General appearance: Appears well, Alert In distress: Mild - HEENT Head: Normocephalic, Atraumatic, Other - Head is nontender to palpation. There is no hematomas noted. Patient states it hurts to the top of his head but there is no reproducible pain.. No: Pavon's sign, Racoon's eyes Eyes: Normal Extraocular movements intact: Yes Pupils: PERRL Neck: Other - Nontender to the cervical spine. Painful range of motion with lateral movement to the neck. - Respiratory Respiratory status: No respiratory distress Chest status: Nontender Breath sounds: Normal Chest palpation: Normal - Cardiovascular Rhythm: Regular Heart sounds: Normal auscultation Murmur: No - Extremities General upper extremity: Normal inspection, Nontender, Normal color, Normal ROM, Normal temperature General lower extremity: Normal inspection, Nontender, Normal color, Normal ROM, Normal temperature, Normal weight bearing. No: Raine's sign - Neurological Neuro grossly intact: Yes Cognition: Other - Oriented to name only. Orientation: Disoriented to place, Disoriented to time Winton Coma Scale Eye Opening: Spontaneous Corina Coma Scale Verbal: Oriented Corina Coma Scale Motor: Obeys Commands Winton Coma Scale Total: 15 Speech: Normal - Skin Skin Temperature: Warm Skin Moisture: Dry Skin Color: Normal Course - Re-evaluation Re-evalutation: 01/03/20 19:16 Patient had a mechanical fall prior to arrival. There is no dizziness, chest pain, no shortness of breath prior to fall. No LOC will get CT head, CT C-spine labs, reevaluate. 01/03/2020 21:06 patient is resting comfortably he is in no acute distress at this time. Pain- free on exam. Reviewed CAT scan and lab results with patient and family. Counseled to follow-up outpatient with primary care physician for recheck in 2 days. Patient was given strict return to the emergency room guidelines. Return for any new or worsening symptoms. All questions were answered. Patient verbalized understanding and agrees with plan of care. 01/03/20 21:06 01/03/20 21:06 01/03/20 21:20 Son at bedside and states he will take patient back to his facility. - Vital Signs Vital signs: Temp Pulse Resp BP Pulse Ox 98.2 F 81 16 112/68 94 01/03/20 18:55 01/03/20 18:55 01/03/20 18:55 01/03/20 18:55 01/03/20 18:55 - Laboratory Result Diagrams: 01/03/20 20:11 01/03/20 20:11 Laboratory results interpreted by me: 01/03/20 01/03/20 01/03/20 20:11 20:11 20:11 RBC 4.22 L Hgb 11.5 L Hct 35.8 L RDW 17.9 H Foster % (Auto) 14.6 H PT 28.7 H Sodium 134.7 L Carbon Dioxide 32 H Glucose 114 H Albumin 3.0 L - Diagnostic Test Radiology reviewed: Reports reviewed Discharge - Discharge Clinical Impression: Fall Qualifiers: Encounter type: initial encounter Qualified Code(s): W19.XXXA - Unspecified fall, initial encounter Head injury Qualifiers: Encounter type: initial encounter Qualified Code(s): S09.90XA - Unspecified injury of head, initial encounter Condition: Stable Disposition: HOME, SELF-CARE Instructions: Head Injury Precautions ([facility]) Additional Instructions: Can take Tylenol as needed for pain. Recommend recheck with primary care physician in 1 to 2 days. Return to the emergency room for any new or worsening symptoms. Referrals: SHANEKA MENDOZA MD [Primary Care Provider] - Follow up tomorrow (Call for follow-up appointment in 1 to 2 days.)
--- NOTE | 2020-01-03 20:17 | RADIOLOGY REPORT (SQ) ---
CT BRAIN AND CERVICAL SPINE HISTORY: Trauma. COMPARISON: 03/04/2019 TECHNIQUE: CT scan of the brain and cervical spine was performed without IV contrast. This exam was performed according to our departmental dose-optimization program, which includes automated exposure control, adjustment of the mA and/or kV according to patient size and/or use of iterative reconstruction technique. FINDINGS: BRAIN: Diffuse involutional changes are present. There are scattered areas of hypoattenuation within the periventricular white matter, which likely represent chronic microvascular ischemia. No evidence of acute infarction, intracranial hemorrhage, extra-axial fluid collection, or midline shift. No air-fluid levels are seen in the paranasal sinuses to suggest acute sinusitis. No depressed skull fracture. CERVICAL SPINE: No acute cervical fracture or prevertebral soft tissue swelling. There is straightening of the normal cervical lordosis, which may be due to cervical collar, muscle spasm, or patient positioning. There is mild multilevel degenerative disc disease as well as facet DJD throughout the cervical spine. No high-grade spinal canal stenosis is seen. IMPRESSION: 1. No acute intracranial hemorrhage. 2. No acute fracture or subluxation of the cervical spine.
[2020-01-03 20:29] LABS: ABSOLUTE EOSINOPHILS # (AUTO) 0.1 10^3/uL (0.0-0.6); ABSOLUTE LYMPHOCYTES (AUTO) 1.5 10^3/uL (0.5-4.7); ABSOLUTE MONOCYTES (AUTO) 0.8 10^3/uL (0.1-1.4); ABSOLUTE NEUT (AUTO) 3.3 10^3/uL (1.7-8.2); BASOPHILS % (AUTO) 0.5 % (0-2); EOSINOPHILS % (AUTO) 1.7 % (0-6); HEMATOCRIT 35.8 % (37.9-51.0); HEMOGLOBIN 11.5 g/dL (13.5-17.0); LYMPHOCYTES % (AUTO) 26.5 % (13-45); MEAN CORPUSCULAR HEMOGLOBIN 27.2 pg (27.0-33.4); MEAN CORPUSCULAR VOLUME 85 fl (80-97); MONOCYTES % (AUTO) 14.6 % (3-13); PLATELET COUNT 201 10^3/uL (150-450); RED BLOOD COUNT 4.22 10^6/uL (4.35-5.55); RED CELL DISTRIBUTION WIDTH 17.9 % (11.5-14.0); SEGMENTED NEUTROPHILS % (AUTO) 56.7 % (42-78); TOTAL CELLS COUNTED % (AUTO) 100 %; WHITE BLOOD COUNT 5.8 10^3/uL (4.0-10.5)
[2020-01-03 20:34] LABS: INTERNATIONAL RATION (INR) 2.71; PROTHROMBIN TIME 28.7 SEC (11.4-15.4)
[2020-01-03 20:55] LABS: ALKALINE PHOSPHATASE 77 U/L (38-126); ANION GAP 5 (5-19); ASPARTATE AMINO TRANSFERASE 17 U/L (17-59); BILIRUBIN,TOTAL 0.4 mg/dL (0.2-1.3); BLOOD UREA NITROGEN 14 mg/dL (7-20); CALCIUM 9.1 mg/dL (8.4-10.2); CARBON DIOXIDE 32 mmol/L (22-30); CHLORIDE 98 mmol/L (98-107); GLUCOSE 114 mg/dL (75-110); POTASSIUM 4.3 mmol/L (3.6-5.0); TOTAL PROTEIN 6.3 g/dL (6.3-8.2)
[2020-01-03 22:17] VITALS: BP 110/70
== END 2020-01-03 22:16 | disposition home or self-care (01) ==
LOC: ER 18:49
DX: S09.90XA Unspecified injury of head, initial encounter (principal); R51 Headache; W19.XXXA Unspecified fall, initial encounter; F03.90 Unspecified dementia, unspecified severity, without behavioral disturbance, psychotic disturbance, mood disturbance, and anxiety; I25.10 Atherosclerotic heart disease of native coronary artery without angina pectoris; E78.5 Hyperlipidemia, unspecified; I10 Essential (primary) hypertension; J44.9 Chronic obstructive pulmonary disease, unspecified; Z86.718 Personal history of other venous thrombosis and embolism; Z79.01 Long term (current) use of anticoagulants; Z88.0 Allergy status to penicillin
CPT/HCPCS: 36415; 70450; 72125; 80053; 85025; 85610; 99284

== ENCOUNTER 2020-01-10 14:06 | Emergency (ER) | payer MEDICARE, OTHER ==
--- NOTE | 2020-01-10 15:35 | ER Document Report ---
ED General - General Chief Complaint: Fall Stated Complaint: FALL Time Seen by Provider: 01/10/20 15:16 Primary Care Provider: SHANEKA MENDOZA MD [NO LOCAL MD] - Follow up as needed TRAVEL OUTSIDE OF THE [place] IN LAST 30 DAYS: No - HPI Notes: Patient is an 89-year-old male who presents to the emergency department for evaluation after a fall. He was going to the bathroom, "missed what I was grabbing for" and ended up falling, striking his head lightly against the plaster wall. He denies any loss of consciousness. No visual changes. He states he was not having chest pain, shortness of breath, dizziness, or any other factors that precipitated the fall. He denies any pain from the injury, when asked about pain he states "I am alive just like you." He is currently on Xarelto because of chronic blood clots. He does have a history of dementia. - Related Data Allergies/Adverse Reactions: Penicillins Allergy (Severe, Verified 01/10/20 14:30) swelling,pain,rash Past Medical History - General Information source: Patient, Relative - Social History Smoking Status: Former Smoker Family History: Reviewed & Not Pertinent - Past Medical History Cardiac Medical History: Reports: Hx Coronary Artery Disease, Hx DVT, Hx Hypercholesterolemia, Hx Hypertension, Hx Pulmonary Embolism Denies: Hx Atrial Fibrillation, Hx Congestive Heart Failure, Hx Heart Attack, Hx Heart Murmur Pulmonary Medical History: Reports: Hx COPD - SLEEP APNEA-NOT COMPLIANT, Hx Sleep Apnea - PT TO BRING MASK Denies: Hx Asthma, Hx Bronchitis, Hx Pneumonia, Hx Respiratory Failure, Hx Tuberculosis Neurological Medical History: Reports: Hx Seizures - x1 on meds. Denies: Hx Cerebrovascular Accident, Hx Parkinson's Disease Endocrine Medical History: Reports: Hx Hypothyroidism. Denies: Hx Graves' Disease, Hx Hyperthyroidism Renal/ Medical History: Reports: Hx Benign Prostatic Hyperplasia. Denies: Hx End Stage Renal Disease, Hx Kidney Stones, Hx Peritoneal Dialysis Malignancy Medical History: Denies Hx Leukemia, Denies Hx Lung Cancer GI Medical History: Reports: Hx Gastroesophageal Reflux Disease. Denies: Hx Crohn's Disease, Hx Hiatal Hernia, Hx Irritable Bowel, Hx Liver Failure, Hx Pancreatitis, Hx Ulcer Musculoskeletal Medical History: Reports Hx Arthritis - KNEES, Denies Hx Fibromyalgia, Denies Hx Multiple Sclerosis, Denies Hx Muscular Dystrophy, Denies Hx Systemic Lupus Erythematosus Psychiatric Medical History: Reports: Hx Dementia, Hx Depression Traumatic Medical History: Denies: Hx Fractures Infectious Medical History: Denies: Hx HIV Past Surgical History: Reports: Hx Abdominal Surgery - WAR INJURY, Hx Appendectomy, Hx Orthopedic Surgery, Hx Thyroid Surgery - 1952, Hx Tonsi llectomy. Denies: Hx Bowel Surgery, Hx Cholecystectomy, Hx Colostomy, Hx Coronary Artery Bypass Graft, Hx Gastric Bypass Surgery, Hx Herniorrhaphy, Hx Pacemaker - Immunizations Hx Diphtheria, Pertussis, Tetanus Vaccination: Yes Hx Pneumococcal Vaccination: 03/04/16 Review of Systems - Review of Systems Constitutional: No symptoms reported EENT: No symptoms reported Cardiovascular: No symptoms reported Respiratory: No symptoms reported Gastrointestinal: No symptoms reported Genitourinary: No symptoms reported Musculoskeletal: No symptoms reported Skin: No symptoms reported Neurological/Psychological: No symptoms reported Physical Exam - Vital signs Vitals: Resp Pulse Ox 13 95 01/10/20 14:13 01/10/20 14:13 - Notes Notes: Vital signs reviewed, please refer to chart. Head is normocephalic, atraumatic. Pupils equal round, reactive to light. Patient with decreased cervical lordosis. He has no midline tenderness to palpation, no paraspinal musculature tenderness is appreciated. No neurological symptoms reported with rotation, flexion extension, axial loading. Heart is regular rate and rhythm. Lungs are clear to auscultation bilaterally. Abdomen is soft, nontender, normoactive bowel sounds throughout. Extremities without cyanosis, clubbing. Posterior calves are nontender. Peripheral pulses are equal. Skin is warm and dry. Patient is awake, alert, cooperative with examiner. He has no gross facial asymmetry. He is plus 5 out of 5 strength of bilateral upper extremities. He moves all 4 extremity spontaneously. Sensation is intact. Course - Re-evaluation Re-evalutation: 01/10/20 15:35 Patient presents to the emergency department for evaluation. This is an 89-year-old gentleman, with a history of dementia, who presents after a head injury. I do not appreciate any tenderness or signs of trauma to the head. Because of his age CT scan of the head and neck were ordered. INR was ordered as well. I discussed at length with the patient as well as his son that there is no established protocol for follow-up in regards to a head injury in a p atient anticoagulated on a novel anticoagulant. We talked at length about neurological symptoms that should prompt a return, assuming that his head CT will be unremarkable. They voiced understanding. Patient is currently stable, has no complaints. We will continue to monitor. 01/10/20 16:40 CT scan of the head and neck showed only chronic issues. INR below 1.5. Again patient and son verbalized understanding to warnings regarding worsening neurological symptoms. Follow-up with primary care, return to the ED with worsening. - Vital Signs Vital signs: Temp Pulse Resp BP Pulse Ox 98.5 F 58 L 23 H 112/69 96 01/10/20 14:24 01/10/20 14:24 01/10/20 15:01 01/10/20 15:01 01/10/20 15:01 - Laboratory Laboratory results interpreted by me: 01/10/20 15:31 PT 17.4 H - Diagnostic Test Radiology reviewed: Reports reviewed Radiology results interpreted by me: 01/10/20 16:[address] 01/10/20 00:00 IMPRESSION: Multilevel degenerative disc disease with mild spondylosis. Facet arthropathy, left more than right. Head CT 01/10/20 00:00 IMPRESSION: 1. 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 No acute hemorrhage is seen. There is a couple mm midline shift to the left. 2. Involutional changes. EVIDENCE OF ACUTE STROKE: NO. Discharge - Discharge Clinical Impression: Coagulopathy Head injury Qualifiers: Encounter type: initial encounter Qualified Code(s): S09.90XA - Unspecified injury of head, initial encounter Condition: Stable Disposition: HOME, SELF-CARE Instructions: Head Injury Precautions ([facility]) Additional Instructions: CT scan of the head and neck today showed chronic changes, but no acute abnormalities were noted. Please note, as discussed, there are not strict guid elines in place regarding head injuries while on Xarelto. If he develops vomiting, vision changes, slurred speech, difficulty moving arm or leg, or any other new or concerning symptoms, he should be seen immediately in the emergency department for reevaluation. Otherwise, he can follow-up with his primary care provider next week. Referrals: SHANEKA MENDOZA MD [NO LOCAL MD] - Follow up as needed
[2020-01-10 16:07] LABS: INTERNATIONAL RATION (INR) 1.41; PROTHROMBIN TIME 17.4 SEC (11.4-15.4)
--- NOTE | 2020-01-10 16:17 | RADIOLOGY REPORT (SQ) ---
EXAM DESCRIPTION: CT HEAD WITHOUT IMAGES COMPLETED DATE/TIME: 01/10/2020 3:55 pm REASON FOR STUDY: fall COMPARISON: 01/03/2020 TECHNIQUE: Axial images acquired through the brain without intravenous contrast. Images reviewed wi th bone, brain and subdural windows. Additional sagittal and coronal reconstructions were generated. Images stored on PACS. All CT scanners at this facility use dose modulation, iterative reconstruction, and/or weight based d osing when appropriate to reduce radiation dose to as low as reasonably achievable (ALARA). [facility]: Dose Right [facility]: CareDose [facility]: Dose Right [facility]: Teradose 4D [facility]: Smart [employer] RADIATION DOSE: CT Rad equipment meets quality standard of care and radiation dose reduction techniq ues were employed. CTDIvol: 23.1 mGy. DLP: 453 mGy-cm. mGy. LIMITATIONS: None. FINDINGS: VENTRICLES: Prominent. CEREBRUM: Cortical atrophy. No masses. No hemorrhage. No midline shift. No evidence for acute inf arction. Normal tracy/white matter differentiation. No areas of low density in the white matter. CEREBELLUM: No masses. No hemorrhage. No alteration of density. No evidence for acute infarction. EXTRAAXIAL SPACES: Subdural hygroma on the right measures 15 mm in depth on image 21. There is a cou ple mm midline shift to the left. No evidence of acute hemorrhage. ORBITS AND GLOBE: No intra- or extraconal masses. Normal contour of globe without masses. CALVARIUM: No fracture. PARANASAL SINUSES: No fluid or mucosal thickening. SOFT TISSUES: No mass or hematoma. OTHER: No other significant finding. IMPRESSION: 1. 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 No acute hemorrhage is seen. There is a couple mm midline shift to the left. 2. Involutional changes. EVIDENCE OF ACUTE STROKE: NO. COMMENT: Quality ID # [id number]: Final reports with documentation of one or more dose reduction techniques (e.g., Automated exposure control, adjustment of the mA and/or kV according to patient size, use of iterative reconstruction technique) TECHNICAL DOCUMENTATION: JOB ID: [id number] 2010 [employer]- All Rights Reserved Reading location - IP/workstation name: [email or web address]
--- NOTE | 2020-01-10 16:19 | RADIOLOGY REPORT (SQ) ---
EXAM DESCRIPTION: CT CERVICAL SPINE WITHOUT IMAGES COMPLETED DATE/TIME: 01/10/2020 3:55 pm REASON FOR STUDY: fall COMPARISON: 01/03/2020 TECHNIQUE: Axial images acquired through the cervical spine without intravenous contrast. Images re viewed with lung, soft tissue and bone windows. Reconstructed coronal and sagittal MPR images review ed. Images stored on PACS. All CT scanners at this facility use dose modulation, iterative reconstruction, and/or weight based d osing when appropriate to reduce radiation dose to as low as reasonably achievable (ALARA). [facility]: Dose Right [facility]: CareDose [facility]: Dose Right [facility]: Teradose 4D [facility]: [employer] RADIATION DOSE: CT Rad equipment meets quality standard of care and radiation dose reduction techniq ues were employed. CTDIvol: 19.9 mGy. DLP: 426 mGy-cm. mGy. LIMITATIONS: None. FINDINGS: ALIGNMENT: Anatomic. MINERALIZATION: Normal. VERTEBRAL BODIES: No fractures or dislocation. DISCS: Disc spaces are narrowed from C4-C7 with very small marginal osteophytes. FACETS, LATERAL MASSES, POSTERIOR ELEMENTS: Hypertrophic facet changes, left more than right. HARDWARE: None in the spine. VISUALIZED RIBS: No fractures. LUNG APICES AND SOFT TISSUES: No significant or acute findings. OTHER: No other significant finding. IMPRESSION: Multilevel degenerative disc disease with mild spondylosis. Facet arthropathy, left mor e than right. TECHNICAL DOCUMENTATION: JOB ID: [id number] Quality ID # [id number]: Final reports with documentation of one or more dose reduction techniques (e.g., Au tomated exposure control, adjustment of the mA and/or kV according to patient size, use of iterative reconstruction technique) 2010 [employer]- All Rights Reserved Reading location - IP/workstation name: [email or web address]
[2020-01-10 17:11] VITALS: BP 129/97
== END 2020-01-10 17:11 | disposition home or self-care (01) ==
LOC: ER 14:06
DX: S09.90XA Unspecified injury of head, initial encounter (principal); D68.9 Coagulation defect, unspecified; W19.XXXA Unspecified fall, initial encounter; Z79.01 Long term (current) use of anticoagulants; Z87.891 Personal history of nicotine dependence; Z88.0 Allergy status to penicillin; I25.10 Atherosclerotic heart disease of native coronary artery without angina pectoris; I10 Essential (primary) hypertension; J44.9 Chronic obstructive pulmonary disease, unspecified
CPT/HCPCS: 36415; 70450; 72125; 85610; 99285